=== PATIENT | female | born 1940 | race Hispanic/Latino ===

== ENCOUNTER 2019-02-16 18:38 | Inpatient (IN) | payer MEDICARE ==
[2019-02-16 18:50] VITALS: BMI 21.6
--- NOTE | 2019-02-16 20:39 | ED PDOC ---
Arrival/HPI - General Chief Complaint: GI Problem Time Seen by Provider: 02/16/19 19:03 Historian: Patient - History of Present Illness Narrative History of Present Illness (Text): 02/16/19 19:45 Eli Reddy is a 78 year old female, whose past medical history includes CAD s/p CABG, emphysema/COPD, diabetes, ovarian cancer, and hysterectomy, who presents to the ED complaining of generalized weakness. Patient also reports diarrhea and loss of appetite. Patient denies any fever, chills, chest pain, shortness of breath, nausea, vomiting, urinary symptoms, back pain, neck pain, headache, dizziness, or any other complaints. Symptom Onset: Gradual (r) Symptom Course: Unchanged Activities at Onset: Light Context: Home Past Medical History - Provider Review Nursing Documentation Reviewed: Yes - Infectious Disease Hx of Infectious Diseases: None - Cardiac Hx Hypertension: Yes Hx Pacemaker: No - Pulmonary Hx Chronic Obstructive Pulmonary Disease (COPD): Yes - Neurological Hx Paralysis: No - Endocrine/Metabolic Hx Diabetes Mellitus Type 2: Yes - Hematological/Oncological Hx Blood Transfusions: No Hx Blood Transfusion Reaction: No - Musculoskeletal/Rheumatological Hx Musculoskeletal Disorders: No - Gastrointestinal Hx Diverticulitis: Yes Hx Gastroesophageal Reflux: Yes Other/Comment: Hernia - Psychiatric Hx Emotional Abuse: No Hx Physical Abuse: No Hx Substance Use: No - Surgical History Hx Coronary Artery Bypass Graft: Yes Hx Hysterectomy: Yes - Anesthesia Hx Anesthesia: Yes Hx Anesthesia Reactions: No Hx Malignant Hyperthermia: No - Suicidal Assessment Feels Threatened In Home Enviroment: No Family/Social History - Physician Review Nursing Documentation Reviewed: Yes Family/Social History: Unknown Family HX Smoking Status: Unknown If Ever Smoked Hx Alcohol Use: No Hx Substance Use: No Hx Substance Use Treatment: No Allergies/Home Meds Allergies/Adverse Reactions: Allergies No Known Allergies Allergy (Verified 02/16/19 18:50) Home Medications: Home Meds Medication Instructions Recorded Confirmed ALPRAZolam [Xanax] 1 tab PO TID 02/16/19 02/16/19 Albuterol Sulfate [Proair Hfa] 2 puff IH PRN PRN 02/16/19 02/16/19 Arformoterol [Brovana] 1 vial IH DAILY 02/16/19 02/16/19 Aspirin [Aspirin Chewable] 1 tab PO DAILY 02/16/19 02/16/19 Budesonide [Pulmicort Respules] 1 vial IH DAILY 02/16/19 02/16/19 Esomeprazole Magnesium [Nexium] 1 cap PO DAILY 02/16/19 02/16/19 Ezetimibe/Simvastatin [Vytorin 1 tab PO DAILY 02/16/19 02/16/19 10-40 mg Tablet] Ferrous Sulfate [Feosol] 1 tab PO BID 02/16/19 02/16/19 Folic Acid 1 tab PO DAILY 02/16/19 02/16/19 Glimepiride [amaRYL] 1 tab PO BID 02/16/19 02/16/19 Losartan/Hydrochlorothiazide 1 tab PO DAILY 02/16/19 02/16/19 [Hyzaar 100-25 Tablet] Metoprolol Tartrate [Lopressor] 1 tab PO DAILY 02/16/19 02/16/19 Tiotropium [Spiriva] 1 cap IH DAILY 02/16/19 02/16/19 metFORMIN [glucOPHAGE] 1 tab PO BID 02/16/19 02/16/19 Review of Systems - Physician Review All systems were reviewed & negative as marked: Yes - Review of Systems Constitutional: Other (+generalized weakness). absent: Fevers Eyes: Normal ENT: Normal Respiratory: Normal. absent: SOB, Cough Cardiovascular: Normal. absent: Chest Pain Gastrointestinal: Diarrhea, Appetite Changes (+decreased appetite) Genitourinary Female: Normal. absent: Dysuria, Frequency, Hematuria, Urine Output Changes Musculoskeletal: Normal. absent: Back Pain, Neck Pain Skin: Normal. absent: Rash Neurological: Normal. absent: Headache, Dizziness Endocrine: Normal Hemo/Lymphatic: Normal Psychiatric: Normal Physical Exam Vital Signs Reviewed: Yes Vital Signs Temp Pulse Resp BP Pulse Ox 02/16/19 18:39 98.2 F 58 L 18 138/64 95 Temperature: Afebrile Blood Pressure: Normal Pulse: Regular Respiratory Rate: Normal Appearance: Positive for: Well-Appearing, Non-Toxic, Comfortable Pain Distress: None Mental Status: Positive for: Alert and Oriented X 3 - Systems Exam Head: Present: Atraumatic, Normocephalic Pupils: Present: PERRL Extroacular Muscles: Present: EOMI Conjunctiva: Present: Normal Mouth: Present: Moist Mucous Membranes Neck: Present: Normal Range of Motion Respiratory/Chest: Present: Clear to Auscultation, Good Air Exchange. No: Respiratory Distress, Accessory Muscle Use Cardiovascular: Present: Regular Rate and Rhythm, Normal S1, S2. No: Murmurs Abdomen: No: Tenderness, Distention, Peritoneal Signs Back: Present: Normal Inspection Upper Extremity: Present: Normal Inspection. No: Cyanosis, Edema Lower Extremity: Present: Normal Inspection. No: Edema Neurological: Present: GCS=15, CN II-XII Intact, Speech Normal Skin: Present: Warm, Dry, Normal Color. No: Rashes Psychiatric: Present: Alert, Oriented x 3, Normal Insight, Normal Concentration Medical Decision Making ED Course and Treatment: 02/16/19 19:45 Impression: 78 year old female complaining of generalized weakness, diarrhea, and loss of appetite. Plan: -- EKG -- Chest X-ray -- Labs, troponin, blood cultures -- Urinalysis, urine cultures -- IV fluids -- Reassess and disposition Progress Notes: Reviewed EKG, sinus bradycardia at [address] bpm. PAC. Non-specific ST/T wave changes. 02/16/19 21:05 Chest X-ray reviewed, shows no acute processes. 02/16/19 22:[address] Mehran Guillory, who is aware and agrees with plan request pt as admission not obs Accepts pt in to his service. Pt admitted to [facility] for dehydration and altered mental status. 02/16/19 23:57 - Lab Interpretations I have reviewed the lab results: Yes - RAD Interpretation Radiology Orders: 02/16/19 19:44 CHEST PORTABLE [RAD] Stat Learning Support Aide: ED Physician - EKG Interpretation Interpreted by ED Physician: Yes Type: 12 lead EKG - Medication Orders Current Medication Orders: Sodium Chloride (Sodium Chloride 0.9%) 1,000 mls @ 80 mls/hr IV .[id number] [facility] - Scribe Statement The provider has reviewed the documentation as recorded by the Scribnelli Dolan Provider Scribe Attestation: All medical record entries made by the Scribe were at my direction and personally dictated by me. I have reviewed the chart and agree that the record accurately reflects my personal performance of the history, physical exam, medical decision making, and the department course for this patient. I have also personally directed, reviewed, and agree with the discharge instructions and disposition. Disposition/Present on Arrival - Present on Arrival Any Indicators Present on Arrival: No History of DVT/PE: No History of Uncontrolled Diabetes: No Urinary Catheter: No History of Decub. Ulcer: No History Surgical Site Infection Following: None - Disposition Have Diagnosis and Disposition been Completed?: Yes Diagnosis: Altered mental status Disposition: HOSPITALIZED Disposition Time: 22:30 Condition: FAIR
[2019-02-16 20:54] LABS: BASO # 0.01 K/mm3 (0.0-2.0); BASO % 0.2 % (0.0-3.0); EOS % 0.2 % (1.5-5.0); HEMOGLOBIN 12.4 g/dL (12.0-16.0); LYMPH # 1.3 (1.2-3.4); LYMPH % 20.2 % (22.0-35.0); MEAN CELL VOLUME 88.9 fl (80.0-105.0); MEAN CORPUSCULAR HEMOGLOBIN 29.3 pg (25.0-35.0); MEAN PLATELET VOLUME 11.6 fl (7.0-11.0); MONO # 0.6 (0.1-0.6); MONO % 9.1 % (1.0-6.0); RBC 4.23 10^6/uL (3.5-6.1); RED CELL DISTRIBUTION WIDTH 14.7 % (11.5-14.5); WHITE BLOOD COUNT 6.5 10^3/uL (4.5-11.0)
[2019-02-16 21:46] LABS: ALB/GLOB RATIO 1.2 (1.1-1.8); ALT/SGPT 7 U/L (7-56); AST/SGOT 28 U/L (14-36); BLOOD UREA NITROGEN 21 mg/dL (7-21); GFR NON-AFRICAN AMERICAN > 60
[2019-02-16] MEDS ORDERED: Potassium Chloride 20 mEq ER Tab PO STA (21:51)
[2019-02-16 21:59] LABS: TROPONIN I < 0.01 ng/mL
[2019-02-16 22:02] LABS: INR 1.12; PROTHROMBIN TIME 12.4 SECONDS (9.4-12.5)
[2019-02-16] MEDS: Sodium Chloride 0.9% 1,000 ML IV SCH (22:07)
[2019-02-16] MEDS ORDERED: Sodium Chloride 0.9% 1,000 ML IV STA (23:32)
--- NOTE | 2019-02-17 02:49 | CP.PCM.PN ---
<Curly Morales - Last Filed: 02/17/19 02:36> Subjective - Date & Time of Evaluation Date of Evaluation: 02/17/19 Time of Evaluation: 12:48 - Subjective Subjective: Curly Morales DO Temitope Mcrae progress note S: 78 y/o female admitted to med/surg for AMS. Temitope Mcrae was called as patient was transferred to her bed and was trying to over the bed rails and slipped. No head trauma O: VS: BP 180/78 HR 70 RR 20 T 98.5 BG 117 Gen: patient is altered, non cooperative, refusing to sit in her bed HEENT: atraumatic, normocephalic Heart: S1,S2, no murmur/gallop Lung: CTA B/L Abd: soft, non-tender, no no masses Ext: no cyanosis, edema. right foot braces in place A: 78 y/o female admitted for AMS P: -Ativan 0.5 mg IM stat -hydralazine 10mg IVP once -resume home BP meds -patient reassessed and was calm. sitting in bed. Stable vitals Curly Morales DO Objective - Vital Signs/Intake and Output Vital Signs (last 24 hours): Temp Pulse Resp BP Pulse Ox 98.1 F 62 20 114/91 H 97 02/17/19 00:06 02/17/19 00:06 02/17/19 00:06 02/17/19 00:06 02/17/19 00:06 - Medications Medications: Current Medications Acetaminophen (Tylenol 325mg Tab) 650 mg PO Q4H PRN PRN Reason: Pain, Mild (1-3) Sodium Chloride (Sodium Chloride 0.9%) 1,000 mls @ 80 mls/hr IV .[id number] [facility] Last Admin: 02/16/19 22:07 Dose: 80 mls/hr Sodium Chloride (Sodium Chloride 0.9%) 1,000 mls @ 80 mls/hr IV .[id number] STA Stop: 02/17/19 12:01 Last Admin: 02/16/19 23:53 Dose: Not Given Insulin Human Regular (Humulin R Low) 0 units SC [facility]; Protocol - Labs Labs: 02/16/19 20:10 02/16/19 21:15 PT 12.4 SECONDS (9.4-12.5) 02/16/19 21:15 INR 1.12 02/16/19 21:15 APTT 23.0 Seconds (26.9-38.3) L 02/16/19 21:15 <Asha Knox - Last Filed: 02/17/19 13:03> Objective - Vital Signs/Intake and Output Vital Signs (last 24 hours): Temp Pulse Resp BP Pulse Ox 98.3 F 71 18 156/70 H 95 02/17/19 06:00 02/17/19 06:00 02/17/19 06:00 02/17/19 06:00 02/17/19 06:00 - Medications Medications: Current Medications Acetaminophen (Tylenol 325mg Tab) 650 mg PO Q4H PRN PRN Reason: Pain, Mild (1-3) Albuterol (Ventolin Hfa 90 Mcg/Actuation (8 G)) 2 puff IH PRN PRN PRN Reason: Shortness of Breath Alprazolam (Xanax) 1 mg PO TID [facility] Arformoterol Tartrate (Brovana) 15 mcg IH [id number] [facility] Aspirin (Aspirin Chewable) 81 mg PO DAILY [facility] Budesonide (Pulmicort Respules) 0.5 mg IH [id number] [facility] Folic Acid (Folic Acid) 1 mg PO DAILY [facility] Glimepiride (Amaryl) 4 mg PO BID [facility] Sodium Chloride (Sodium Chloride 0.9%) 1,000 mls @ 80 mls/hr IV .[id number] [facility] Last Admin: 02/17/19 08:39 Dose: Not Given Insulin Human Regular (Humulin R Low) 0 units SC [facility]; Protocol Last Admin: 02/17/19 12:41 Dose: Not Given Losartan Potassium (Cozaar) 100 mg PO DAILY [facility] Metformin HCl (Glucophage) 500 mg PO BID [facility] Metoprolol Tartrate (Lopressor) 50 mg PO DAILY [facility] Non-Formulary Medication (Ezetimibe/Simvastatin [Vytorin 10-40 Mg Tablet]) 1 tab PO DAILY [facility] Pantoprazole Sodium (Protonix Ec Tab) 40 mg PO ACB [facility] Tiotropium [place] (Spiriva) 1,000 mcg IH DAILY [facility] - Labs Labs: 02/17/19 09:50 02/17/19 09:50 PT 12.4 SECONDS (9.4-12.5) 02/16/19 21:15 INR 1.12 02/16/19 21:15 APTT 23.0 Seconds (26.9-38.3) L 02/16/19 21:15 Attending/Attestation - Attestation I have personally seen and examined this patient.: Yes I have fully participated in the care of the patient.: Yes I have reviewed all pertinent clinical information, including history, physical exam and plan: Yes Notes (Text): 02/17/19 13:01 Pt seen with the resident by the bedside. Case discussed in detail. Agree with documentation, assessment and plan of treatment.
[2019-02-17] MEDS: Sodium Chloride 0.9% 1,000 ML IV SCH (08:39)
[2019-02-17] MEDS: Insulin Reg-LOW-Coverage SC SCH ×4 (08:44→22:10)
--- NOTE | 2019-02-17 09:44 | RAD ---
Date of service: 02/16/2019 HISTORY: weakness COMPARISON: 01/09/2016 TECHNIQUE: 1 view obtained. FINDINGS: LUNGS: No active pulmonary disease. PLEURA: No significant pleural effusion identified, no pneumothorax apparent. CARDIOVASCULAR: Aortic calcification and tortuosity Normal cardiac size. No pulmonary vascular congestion. OSSEOUS STRUCTURES: No significant abnormalities. VISUALIZED UPPER ABDOMEN: Normal. OTHER FINDINGS: None. IMPRESSION: No active disease.
[2019-02-17 10:09] LABS: HEMOGLOBIN 12.7 g/dL (12.0-16.0); MEAN CELL VOLUME 89.7 fl (80.0-105.0); MEAN CORPUSCULAR HEMOGLOBIN 29.1 pg (25.0-35.0); MEAN CORPUSCULAR HGB CONC 32.5 g/dl (31.0-37.0); MEAN PLATELET VOLUME 11.2 fl (7.0-11.0); RBC 4.36 10^6/uL (3.5-6.1); RED CELL DISTRIBUTION WIDTH 14.7 % (11.5-14.5); WHITE BLOOD COUNT 5.7 10^3/uL (4.5-11.0)
[2019-02-17 10:18] LABS: BLOOD UREA NITROGEN 17 mg/dL (7-21); CALCIUM 8.7 mg/dL (8.4-10.5); GFR NON-AFRICAN AMERICAN > 60
[2019-02-17] MEDS ORDERED: Magnesium Sulfate 1 gm in D5W 1 GM/100 ML BAG IVPB ONE (11:00)
[2019-02-17] MEDS ORDERED: Albuterol HFA 90 mcg/actuation (8 g) IH PRN (11:09)
[2019-02-17] MEDS ORDERED: Budesonide 0.5 mg/2 ml Inhal Susp UD IH SCH (11:15)
[2019-02-17] MEDS ORDERED: Non Formulary Medication (Ezetimibe/Simvastatin [Vytorin 10-40 Mg Tablet] 1 TAB) PO SCH (11:15)
[2019-02-17] MEDS ORDERED: Arformoterol 15 mcg/2 ml Inh Sol IH SCH (11:15)
[2019-02-17] MEDS ORDERED: Non Formulary Medication (Losartan/Hydrochlorothiazide [Hyzaar 100-25 Tablet] 1 TAB) PO SCH (11:15)
[2019-02-17] MEDS ORDERED: Tiotropium 18 mcg Cap For Inhalation IH SCH (11:15)
[2019-02-17] MEDS ORDERED: ESOMEPRAZOLE MAGNESIUM PO SCH (11:15)
--- NOTE | 2019-02-17 11:34 | CT ---
Date of service: 02/17/2019 PROCEDURE: CT HEAD WITHOUT CONTRAST. HISTORY: ams COMPARISON: None available. TECHNIQUE: Axial computed tomography images were obtained through the head/brain without intravenous contrast. Radiation dose: Total exam DLP = 887.39 mGy-cm. This CT exam was performed using one or more of the following dose reduction techniques: Automated exposure control, adjustment of the mA and/or kV according to patient size, and/or use of iterative reconstruction technique. FINDINGS: HEMORRHAGE: No intracranial hemorrhage. BRAIN: Diffuse atrophy with prominence of the ventricles and sulci noted. No mass effect or edema. Intracranial atherosclerosis. Small subcentimeter lacunar-type infarcts, bilateral basal ganglia. Moderate scattered periventricular and subcortical white matter hypodensities, which are nonspecific, but often seen with chronic microvascular ischemic disease. Please note that MRI with diffusion imaging is more sensitive in the detection of acute ischemic event. VENTRICLES: No hydrocephalus. CALVARIUM: Unremarkable. PARANASAL SINUSES: Unremarkable as visualized. No significant inflammatory changes. MASTOID AIR CELLS: Unremarkable as visualized. No inflammatory changes. OTHER FINDINGS: Calcified nodule/sebaceous cyst at the left scalp vertex. IMPRESSION: Generalized atrophy. Moderate scattered nonspecific white matter changes. Small subcentimeter lacunar-type infarcts, bilateral basal ganglia.
[2019-02-17] MEDS ORDERED: Pantoprazole 40 mg EC Tab PO ONE (11:45)
--- NOTE | 2019-02-17 12:13 | CP.PCM.APN ---
Subjective - Date & Time of Evaluation Date of Evaluation: 02/17/19 Time of Evaluation: 09:30 - Subjective Subjective: Pt seen and examined at bedside. In no acute distress. She is awake, alert and oriented to time and self. Pt think she is in [place]. Objective - Vital Signs/Intake and Output Vital Signs (last 24 hours): Temp Pulse Resp BP Pulse Ox 98.3 F 71 18 156/70 H 95 02/17/19 06:00 02/17/19 06:00 02/17/19 06:00 02/17/19 06:00 02/17/19 06:00 - Medications Medications: Current Medications Acetaminophen (Tylenol 325mg Tab) 650 mg PO Q4H PRN PRN Reason: Pain, Mild (1-3) Albuterol (Ventolin Hfa 90 Mcg/Actuation (8 G)) 2 puff IH PRN PRN PRN Reason: Shortness of Breath Alprazolam (Xanax) 1 mg PO TID [facility] Arformoterol Tartrate (Brovana) 15 mcg IH [id number] [facility] Aspirin (Aspirin Chewable) 81 mg PO DAILY [facility] Budesonide (Pulmicort Respules) 0.5 mg IH [id number] [facility] Folic Acid (Folic Acid) 1 mg PO DAILY [facility] Glimepiride (Amaryl) 4 mg PO BID [facility] Sodium Chloride (Sodium Chloride 0.9%) 1,000 mls @ 80 mls/hr IV .[id number] [facility] Last Admin: 02/17/19 08:39 Dose: Not Given Insulin Human Regular (Humulin R Low) 0 units SC [facility]; Protocol Last Admin: 02/17/19 08:44 Dose: Not Given Losartan Potassium (Cozaar) 100 mg PO DAILY [facility] Metformin HCl (Glucophage) 500 mg PO BID [facility] Metoprolol Tartrate (Lopressor) 50 mg PO DAILY [facility] Non-Formulary Medication (Ezetimibe/Simvastatin [Vytorin 10-40 Mg Tablet]) 1 tab PO DAILY [facility] Pantoprazole Sodium (Protonix Ec Tab) 40 mg PO ACB [facility] Tiotropium [place] (Spiriva) 1,000 mcg IH DAILY [facility] - Labs Labs: 02/17/19 09:50 02/17/19 09:50 PT 12.4 SECONDS (9.4-12.5) 02/16/19 21:15 INR 1.12 02/16/19 21:15 APTT 23.0 Seconds (26.9-38.3) L 02/16/19 21:15 - Constitutional Appears: No Acute Distress - Respiratory Exam Respiratory Exam: Clear to Ausculation Bilateral, NORMAL BREATHING PATTERN - Cardiovascular Exam Cardiovascular Exam: REGULAR RHYTHM, +S1, +S2 - GI/Abdominal Exam GI & Abdominal Exam: Soft, Normal Bowel Sounds - Neurological Exam Neurological Exam: Alert, Awake Assessment and Plan - Assessment and Plan (Free Text) Assessment: pt is a 78 y.o. female with pmhx of CAD s/p CABG, emphysema/COPD, diabetes, ovarian cancer, and hysterectomy, who presented to the ED for gen weakness, diarrhea and loss of appetite. Pt had one episode of soft BM today. No diarrhea noted. Her magnesium noted to be low today. ITS Impressions Chest X-Ray 02/16/19 19:44 IMPRESSION: No active disease. Head CT 02/17/19 10:13 IMPRESSION: Generalized atrophy. Moderate scattered nonspecific white matter changes. Small subcentimeter lacunar-type infarcts, bilateral basal ganglia. Plan: Magnesium replaced Ucx/Bcx pending Cardio, GI, Pulm on consult per PMD Physical therapy pending Meds per MAR Will continue to follow
--- NOTE | 2019-02-17 13:22 | CARD ---
APPROVED REPORT Date of service: 02/16/2019 EKG Measurement Heart [id number] <Conclusion> Sinus bradycardia with premature atrial complexes Poor R Progression in V Leads. ST & T wave abnormality, consider lateral ischemia Prolonged QT Abnormal ECG
[2019-02-17] MEDS ORDERED: Albuterol 0.5% Inhal Sol (2.5 mg/0.5 ml) UD IH PRN (13:52)
--- NOTE | 2019-02-17 18:57 | HP ---
DATE OF EXAM: 02/17/2019 HISTORY OF PRESENT ILLNESS: The patient is a 78-year-old female who was brought to the emergency room by her family when she was found to be disoriented and extremely unkept in her apartment. I received a phone call yesterday from the patient's daughter saying that the patient had been suffering from diarrhea. The patient admits to diarrhea every 15 minutes. Apparently, there was feces in rags, towels, on the carpeting and in the house. So I suggested that the squad be called and the patient be taken to the emergency room. PAST MEDICAL HISTORY: The patient is known to have a past medical history positive for ovarian cancer in 2009. She has underwent quadruple bypass surgery in 2006. She fractured her wrist in the distal past. She had a history of diverticulitis in 1997. There was a 1.3 cm fibroid nodule biopsy in 2011, which was negative for carcinoma. She recently suffered a malleolar fracture of the right foot and was hospitalized in [facility] for that and was discharged to home a week or two ago. She also has a history of osteoarthritis of the knees, noninsulin-dependent diabetes mellitus since 2008, and cardiac status, which is followed by Dr. Emery, the rn cardiology. She has hypertension, congestive heart failure, COPD since 2006, which is followed by Dr. Su, the dining car hop and gastroesophageal reflux disease. ALLERGIES: SHE HAS NO KNOW MEDICAL ALLERGIES. MEDICATIONS: At the time of admission include Xanax 1 tablet three times a day as needed, ProAir 2 puffs as needed, Brovana one vial inhalation therapy daily, a 81 mg aspirin daily, Pulmicort Respules, Nexium one capsule daily, Vytorin 10/40 mg once a day, ferrous sulfate one tablet twice a day, folic acid 1 tablet daily, Amaryl one tablet twice a day, Hyzaar 100/25 mg once a day, metoprolol tartarate 50 mg once a day, Spiriva one capsule inhaled daily, and metformin 500 mg twice a day. SOCIAL HISTORY: She discontinued cigarettes approximately 8 to 11 years ago. She is a nonalcoholic drinker. She is a x21 years. She lives downstairs from her daughter. She drinks 2-1/2 cups of coffee a day. PHYSICAL EXAMINATION GENERAL: The patient is awake, alert and oriented. She is quite confused. She is upset about treatment she received in the emergency room prior to coming to the medical floor. HEAD, EYES, EARS, NOSE AND THROAT: Unremarkable. NECK: Supple with no lymphadenopathy and no goiter. LUNGS: Clear to auscultation and percussion. HEART: Regular. No murmurs are appreciated. A sternotomy scar is noted. ABDOMEN: Soft, nontender. The patient does feel some lower suprapubic tenderness on palpation; however, states she needs to urinate. The patient apparently soiled her bed and is awaiting a change from the nurses. A sample of stool will be sent for C. difficile testing. EXTREMITIES: Free of cyanosis, clubbing, or edema. NEUROLOGIC: The patient is awake, alert and oriented with no focal neurological signs. LABORATORY STUDIES: Showed the white blood cell count to be normal at 6.5, hemoglobin and hematocrit are 12.4 and 37.6 respectively, platelet count is 230. Serum chemistry shows potassium to be low at 3.2, chloride is 96, sodium is normal at 138, blood urea nitrogen and creatinine are 21 and 0.7 respectively, non-fasting glucose is 157. Liver enzymes are normal. Alkaline phosphatase is normal at 102. Troponins are negative at 0.02. Chest x-ray shows no acute disease. EKG shows sinus bradycardia with PAC's. There is a questionable old anterior wall myocardial infarction. There are nonspecific ST-T wave changes and prolonged QT interval noted. ASSESSMENT AND PLAN: So the patient is admitted with dehydration, diarrhea, abdominal pain, and mental status changes. The patient is to be reevaluated in the morning. Nain Guillory MD
--- NOTE | 2019-02-17 19:24 | CON ---
DATE OF CONSULTATION: 02/17/2019 PULMONARY CONSULTATION REASON FOR CONSULTATION: Chronic obstructive pulmonary disease. REFERRING PHYSICIAN: Dr. Guillory. HISTORY OF PRESENT ILLNESS: The patient is a 78-year-old female, with past medical history significant for chronic obstructive pulmonary disease, coronary artery disease, status post open heart surgery, diabetes mellitus, who presents with progressive weakness and diarrhea for the past 4 days. The patient denies nausea and vomiting. In the emergency room, the patient was noted to be dehydrated. She was thus admitted for additional evaluation. The patient denies shortness of breath at rest or dyspnea on exertion. The patient also denies cough or sputum production. There is no history of chest pain, coughing up of blood, or chest pain - made worse with deep respirations. There is no history of temperatures, chills or infectious exposure. There is no history of night sweats, weight loss or appetite change prior to the above events. No history of calf pains. No history of syncope or diaphoresis. No history of recent travel or trauma. REVIEW OF SYSTEMS: No acute urinary symptoms. No new musculoskeletal complaints. Rest of the review of systems is negative. ALLERGIES: NO KNOWN ALLERGIES. SOCIAL HISTORY: Positive for tobacco, negative for alcohol. FAMILY HISTORY: No inheritable diseases. HOME MEDICATIONS: Include folate, Pulmicort, Brovana, ProAir, Spiriva, Xanax, Glucophage, Amaryl, Feosol, Nexium, Lopressor, losartan, and aspirin. PHYSICAL EXAMINATION: GENERAL: The patient appears comfortable at rest. She is not short of breath. She is not using accessory muscles for breathing. VITAL SIGNS: Temperature is 98.3, pulse is 71, respirations 18, blood pressure 156/70. Oxygen saturation on room air - 95%. HEENT: Normocephalic, atraumatic. NECK: No JVD. CARDIOVASCULAR: Positive S1, S2. No S3, gallop. LUNGS: Clear bilaterally. EXTREMITIES: No clubbing, cyanosis or edema. Calves are nontender to palpation. GASTROINTESTINAL: Abdomen is soft, nontender and nondistended. Bowel sounds are positive. SKIN: No acute rash. NEUROLOGIC: Exam limited at the present time. PERTINENT LABORATORY DATA: Chest x-ray was done and reviewed. There is no active disease noted. CBC: White count 5.7K, hemoglobin 12.7, hematocrit is 39.1, platelets of 227,000. Complete metabolic profile: Glucose 152, magnesium 1.4. Rest of the metabolic profile is within normal limits. IMPRESSION: 1. Rule out gastroenteritis. 2. Dehydration. 3. Chronic obstructive pulmonary disease. 4. Coronary artery disease. PLAN: The patient presents to [facility] with a 4-day history of increasing weakness and diarrhea. As above, she denies nausea and vomiting. She also denies infectious contacts. In the emergency room, she was noted to be dehydrated. She was thus admitted for additional evaluation. I did review the chest x-ray as above. There is no active disease noted. On physical exam, the patient is not in bronchospasm. In addition, there is no significant alveolar arterial gradient. I will continue with the Brovana and Spiriva. However, I will increase the Pulmicort to twice daily. At this point in time, the patient offers no acute pulmonary symptoms. The patient does state to feeling a little better this morning, and is clinically improved - compared to the initial presentation. Cardiology and Gastrointestinal consultations have been ordered. Additional pulmonary intervention will be based on the clinical status of the patient. I will discuss the above with the attending physician. Thank you very much for this pulmonary consultation. Antonio Green MD [email or web address]
[2019-02-17] MEDS: Budesonide 0.5 mg/2 ml Inhal Susp UD IH SCH (20:17)
[2019-02-17] MEDS: Arformoterol 15 mcg/2 ml Inh Sol IH SCH (20:17)
[2019-02-18 07:09] LABS: HEMOGLOBIN 12.5 g/dL (12.0-16.0); MEAN CORPUSCULAR HEMOGLOBIN 29.2 pg (25.0-35.0); MEAN CORPUSCULAR HGB CONC 32.5 g/dl (31.0-37.0); MEAN PLATELET VOLUME 11.5 fl (7.0-11.0); RBC 4.28 10^6/uL (3.5-6.1); RED CELL DISTRIBUTION WIDTH 14.9 % (11.5-14.5); WHITE BLOOD COUNT 5.7 10^3/uL (4.5-11.0)
[2019-02-18 07:22] LABS: LDL CHOLESTEROL 157 mg/dL (0-129)
[2019-02-18 07:33] LABS: ALB/GLOB RATIO 1.1 (1.1-1.8); ALBUMIN 3.3 g/dL (3.0-4.8); ALT/SGPT 7 U/L (7-56); AMYLASE 68 U/L (35-125); AST/SGOT 18 U/L (14-36); BLOOD UREA NITROGEN 16 mg/dL (7-21); CALCIUM 8.9 mg/dL (8.4-10.5); GFR NON-AFRICAN AMERICAN > 60; HDL CHOLESTEROL 38 mg/dL (29-60); LIPASE 167 U/L (23-300)
[2019-02-18] MEDS: Budesonide 0.5 mg/2 ml Inhal Susp UD IH SCH ×2 (07:58→20:24)
[2019-02-18] MEDS: Arformoterol 15 mcg/2 ml Inh Sol IH SCH ×2 (07:58→20:25)
--- NOTE | 2019-02-18 09:00 | PN ---
DATE: 02/18/2019 SUBJECTIVE: The patient appears quite comfortable this morning. She is not short of breath at rest. PHYSICAL EXAMINATION: VITAL SIGNS: Temperature is 97.9, pulse 90, respirations 18, blood pressure 144/76. Oxygen saturation on room air 93% --97%. HEENT: Normocephalic, atraumatic. No JVD. CARDIOVASCULAR: Positive S1, S2. No S3 gallop. LUNGS: Clear bilaterally. EXTREMITIES: No clubbing, cyanosis or edema. Calves are nontender to palpation. GASTROINTESTINAL: Abdomen is soft, nontender and nondistended. Bowel sounds are positive. SKIN: No acute rash. NEUROLOGIC: Exam limited at the present time. IMPRESSION: 1. Rule out gastroenteritis. 2. Dehydration. 3. Chronic obstructive pulmonary disease. 4. Coronary artery disease. PLAN: The patient appears quite comfortable this morning. She is not short of breath at rest. She does state to feeling much better overall. The diarrhea is subsiding. On physical exam, the patient's lungs remain clear. In addition, there is no significant alveolar arterial gradient. I will continue the current nebulizer treatments and inhaled steroids for now. Consultations for Cardiology and Gastroenterology are ordered. Clinical status of the patient appears much improved - compared to the initial presentation. I will discuss the above with Dr. Guillory. Antonoi Green MD MTDAlex
--- NOTE | 2019-02-18 09:03 | CON ---
DATE OF CONSULTATION: 02/17/2019 TYPE OF DICTATION: Cardiology consult. REASON FOR CONSULTATION: Followup cardiac evaluation, history of coronary artery disease, history of CABG, admitted with altered mental status, diarrhea and vomiting. BRIEF CLINICAL HISTORY: This is a 78-year-old female with past medical history significant for coronary artery disease status post CABG, quadruple bypass 2006, admitted with altered mental status after having diarrhea and vomiting. The patient was vomiting and all vomitus around the bed noted today. PAST HISTORY: Significant for coronary artery disease, quadruple bypass 2006, history of ovarian CA in 2009, history of diverticular colonic disease, history of fibroid in 2011 and was found to be negative for cancer, history of malleolar fracture and hospitalized and then was sent to the rehab facility. The patient denies any chest pain. Denies any shortness of breath. Denies any palpitation. PAST SURGICAL HISTORY: Significant for ovarian cancer, status post removal; history of quadruple bypass in 2006; history of fibroid uterus and nodule, but negative for carcinoma; history of malleolar fracture of right foot. SOCIAL HISTORY: Stopped smoking 8-10 years ago. No history of alcohol abuse. No history of any substance abuse. CURRENT MEDICATIONS: The patient is taking Xanax three times a day 2 puffs, Brovana inhaler, aspirin, folic acid, Amaryl, Hyzaar, combination of Cozaar 100 mg and 25 of diuretic, metoprolol tartrate 50 mg twice a day, Spiriva. ALLERGIES: NO KNOWN DRUG ALLERGIES. REVIEW OF SYSTEMS: As per HPI. PHYSICAL EXAMINATION: VITAL SIGNS: Height of the patient is 4 feet 9 inches. Weight of the patient 100 pounds. Body mass index 21 kg/m2. Temperature afebrile, heart rate 86, blood pressure 156/90. HEENT: PERRLA. Extraocular muscles are intact. NECK: Supple. No carotid bruit or thyromegaly. CHEST: Clear to auscultation. HEART: S1 and S2, regular. ABDOMEN: Soft. EXTREMITIES: Clubbing and cyanosis negative. EKG shows sinus isela with premature atrial complexes, poor RR progression, ST-T changes consistent with lateral ischemia. BLOOD WORKUP: WBC 5.7, hemoglobin and hematocrit 12.8 and 39.1, platelet count 227,000. Chemistry shows sodium 130, potassium 3.7, chloride 101, carbon dioxide 28, anion gap of 30, BUN 17, and creatinine 0.7. Previous cardiac workup not available in the computer. We will check with Dr. Emery's office if the patient has any recent cardiac workup or not. IMPRESSION AND PLAN: A 78-year-old female with a past medical history significant for quadruple bypass in 2006, history of carcinoma of ovarian, history of fibroid uterus and negative for cancer, history of malleolar fracture in the past, admitted with altered mental status, vomiting, diarrhea. The patient is still vomiting and vomitus around the bed noted. So far, no evidence of acute PR, though EKG with some changes, but no evidence of acute PR. We will get echo to assess LV function, lipid profile, TSH, hemoglobin A1c. Further recommendations will depend upon the hospital course. We will look if any recent cardiac workup was done. Thank you Dr. Guillory for providing us the opportunity in taking care of the patient. We will follow with you. Melanie An MD
[2019-02-18] MEDS: Insulin Reg-LOW-Coverage SC SCH ×4 (09:18→21:21)
[2019-02-18] MEDS: Tiotropium 18 mcg Cap For Inhalation IH SCH (09:19)
[2019-02-18] MEDS: Pantoprazole 40 mg EC Tab PO SCH (09:20)
[2019-02-18] MEDS ORDERED: Arformoterol 15 mcg/2 ml Inh Sol IH SCH (10:00)
[2019-02-18] MEDS ORDERED: Budesonide 0.5 mg/2 ml Inhal Susp UD IH SCH (10:00)
[2019-02-18] MEDS: Potassium Chloride 10 mEq ER Tab PO SCH ×2 (11:12→17:51)
--- NOTE | 2019-02-18 11:21 | CP.PCM.PN ---
Subjective - Date & Time of Evaluation Date of Evaluation: 02/18/19 Time of Evaluation: 05:00 - Subjective Subjective: Patient was seen because I was asked to cosign the order for hydralazine 10 mg IV x1. She has no complaints. Denies headache, heaviness in head, lightheadedness, dizziness, chest pain, shortness of breath, weakness, paresthesia. Medical records reviewed. This 78-year-old woman was admitted through the emergency room for diarrhea, dehydration, abdominal pain, mental status changes. She has past medical history of ovarian cancer, status post quadruple bypass surgery, fractured right wrist, diverticulitis, fibroid nodule, right foot malleolar fracture, hypertension, congestive heart failure, COPD, GERD. Objective - Vital Signs/Intake and Output Vital Signs (last 24 hours): Temp Pulse Resp BP Pulse Ox 97.9 F 94 H 18 122/68 93 L 02/18/19 06:00 02/18/19 09:19 02/18/19 06:00 02/18/19 09:19 02/18/19 06:00 Intake and Output: 02/18/19 02/18/19 06:59 18:59 Intake Total 520 Balance 520 - Medications Medications: Current Medications Acetaminophen (Tylenol 325mg Tab) 650 mg PO Q4H PRN PRN Reason: Pain, Mild (1-3) Albuterol Sulfate (Albuterol 0.5% Inhal Chiquita (2.5 Mg/0.5 Ml) Ud) 2.5 mg IH [id number] PRN PRN Reason: Shortness of Breath Alprazolam (Xanax) 1 mg PO TID [facility] Last Admin: 02/18/19 09:20 Dose: 1 mg Arformoterol Tartrate (Brovana) 15 mcg IH [id number] [facility] Last Admin: 02/18/19 07:58 Dose: 15 mcg Aspirin (Aspirin Chewable) 81 mg PO DAILY [facility] Last Admin: 02/18/19 09:20 Dose: 81 mg Budesonide (Pulmicort Respules) 0.5 mg IH [id number] [facility] Last Admin: 02/18/19 07:58 Dose: 0.5 mg Folic Acid (Folic Acid) 1 mg PO DAILY [facility] Last Admin: 02/18/19 09:20 Dose: 1 mg Glimepiride (Amaryl) 4 mg PO BID [facility] Last Admin: 02/18/19 09:20 Dose: 4 mg Ibuprofen (Motrin Tab) 600 mg PO Q8 PRN PRN Reason: Pain, severe (8-10) Insulin Human Regular (Humulin R Low) 0 units SC ACHS [facility]; Protocol Last Admin: 02/18/19 09:18 Dose: 1 unit Losartan Potassium (Cozaar) 100 mg PO DAILY [facility] Last Admin: 02/18/19 09:20 Dose: 100 mg Metformin HCl (Glucophage) 500 mg PO BID [facility] Last Admin: 02/18/19 09:20 Dose: 500 mg Metoprolol Tartrate (Lopressor) 50 mg PO DAILY [facility] Last Admin: 02/18/19 09:19 Dose: 50 mg Non-Formulary Medication (Ezetimibe/Simvastatin [Vytorin 10-40 Mg Tablet]) 1 tab PO DAILY [facility] Ondansetron HCl (Zofran Inj) 4 mg IVP Q6H PRN PRN Reason: Nausea/Vomiting Last Admin: 02/17/19 19:38 Dose: 4 mg Pantoprazole Sodium (Protonix Ec Tab) 40 mg PO ACB [facility] Last Admin: 02/18/19 09:20 Dose: 40 mg Potassium Chloride (Klor-Con 10) 10 meq PO BID [facility] Tiotropium [place] (Spiriva) 18 mcg IH DAILY [facility] Last Admin: 02/18/19 09:19 Dose: 18 mcg - Labs Labs: 02/18/19 06:40 02/18/19 06:40 PT 12.4 SECONDS (9.4-12.5) 02/16/19 21:15 INR 1.12 02/16/19 21:15 APTT 23.0 Seconds (26.9-38.3) L 02/16/19 21:15 - Constitutional Appears: Well, No Acute Distress - Head Exam Head Exam: ATRAUMATIC, NORMAL INSPECTION, NORMOCEPHALIC - Eye Exam Eye Exam: Normal appearance - ENT Exam ENT Exam: Normal External Ear Exam - Neck Exam Neck Exam: Normal Inspection - Respiratory Exam Respiratory Exam: NORMAL BREATHING PATTERN - Cardiovascular Exam Cardiovascular Exam: absent: JVD - GI/Abdominal Exam GI & Abdominal Exam: absent: Distended - Rectal Exam Rectal Exam: Deferred - Exam Additional comments: Deferred. - Extremities Exam Extremities Exam: Normal Inspection - Back Exam Back Exam: NORMAL INSPECTION - Neurological Exam Neurological Exam: Alert, Awake - Psychiatric Exam Psychiatric exam: Normal Affect, Normal Mood - Skin Skin Exam: Normal Color Assessment and Plan - Assessment and Plan (Free Text) Assessment: Elevated blood pressure reading. COPD. GERD. Congestive heart failure. History of ovarian cancer. Plan: Hydralazine 10 mg IV x1. Continue present management.
--- NOTE | 2019-02-18 12:39 | CP.PCM.PN ---
Subjective - Date & Time of Evaluation Date of Evaluation: 02/18/19 Time of Evaluation: 07:00 - Subjective Subjective: Awake, no distress Reason for consultation and follow up:Cardiac follow up, history coronary artery disease, post CABG, admitted for altered mental status Seen and examined by me and Dr. An Objective - Vital Signs/Intake and Output Vital Signs (last 24 hours): Temp Pulse Resp BP Pulse Ox 97.9 F 94 H 18 122/68 93 L 02/18/19 06:00 02/18/19 09:19 02/18/19 06:00 02/18/19 09:19 02/18/19 06:00 Intake and Output: 02/18/19 02/18/19 06:59 18:59 Intake Total 520 Balance 520 - Medications Medications: Current Medications Acetaminophen (Tylenol 325mg Tab) 650 mg PO Q4H PRN PRN Reason: Pain, Mild (1-3) Albuterol Sulfate (Albuterol 0.5% Inhal Chiquita (2.5 Mg/0.5 Ml) Ud) 2.5 mg IH [id number] PRN PRN Reason: Shortness of Breath Alprazolam (Xanax) 1 mg PO TID [facility] Last Admin: 02/18/19 09:20 Dose: 1 mg Arformoterol Tartrate (Brovana) 15 mcg IH [id number] [facility] Last Admin: 02/18/19 07:58 Dose: 15 mcg Aspirin (Aspirin Chewable) 81 mg PO DAILY [facility] Last Admin: 02/18/19 09:20 Dose: 81 mg Budesonide (Pulmicort Respules) 0.5 mg IH [id number] [facility] Last Admin: 02/18/19 07:58 Dose: 0.5 mg Folic Acid (Folic Acid) 1 mg PO DAILY [facility] Last Admin: 02/18/19 09:20 Dose: 1 mg Glimepiride (Amaryl) 4 mg PO BID [facility] Last Admin: 02/18/19 09:20 Dose: 4 mg Ibuprofen (Motrin Tab) 600 mg PO Q8 PRN PRN Reason: Pain, severe (8-10) Last Admin: 02/18/19 12:15 Dose: 600 mg Insulin Human Regular (Humulin R Low) 0 units SC [facility]; Protocol Last Admin: 02/18/19 12:16 Dose: 3 unit Losartan Potassium (Cozaar) 100 mg PO DAILY [facility] Last Admin: 02/18/19 09:20 Dose: 100 mg Metformin HCl (Glucophage) 500 mg PO BID [facility] Last Admin: 02/18/19 09:20 Dose: 500 mg Metoprolol Tartrate (Lopressor) 50 mg PO DAILY [facility] Last Admin: 02/18/19 09:19 Dose: 50 mg Non-Formulary Medication (Ezetimibe/Simvastatin [Vytorin 10-40 Mg Tablet]) 1 tab PO DAILY [facility] Ondansetron HCl (Zofran Inj) 4 mg IVP Q6H PRN PRN Reason: Nausea/Vomiting Last Admin: 02/17/19 19:38 Dose: 4 mg Pantoprazole Sodium (Protonix Ec Tab) 40 mg PO ACB [facility] Last Admin: 02/18/19 09:20 Dose: 40 mg Potassium Chloride (Klor-Con 10) 10 meq PO BID [facility] Last Admin: 02/18/19 11:12 Dose: 10 meq Tiotropium [place] (Spiriva) 18 mcg IH DAILY [facility] Last Admin: 02/18/19 09:19 Dose: 18 mcg - Labs Labs: 02/18/19 06:40 02/18/19 06:40 PT 12.4 SECONDS (9.4-12.5) 02/16/19 21:15 INR 1.12 02/16/19 21:15 APTT 23.0 Seconds (26.9-38.3) L 02/16/19 21:15 - Constitutional Appears: Non-toxic, No Acute Distress - Head Exam Head Exam: NORMAL INSPECTION, NORMOCEPHALIC - Eye Exam Eye Exam: Normal appearance Pupil Exam: NORMAL ACCOMODATION - ENT Exam ENT Exam: Mucous Membranes Moist, Normal Exam - Respiratory Exam Respiratory Exam: Decreased Breath Sounds, Clear to Ausculation Bilateral, NORMAL BREATHING PATTERN - Cardiovascular Exam Cardiovascular Exam: +S1, +S2 - GI/Abdominal Exam GI & Abdominal Exam: Soft, Normal Bowel Sounds - Extremities Exam Extremities Exam: Full ROM, Normal Capillary Refill - Neurological Exam Neurological Exam: Alert, Awake Additional comments: confuse - Skin Skin Exam: Normal Color, Warm Assessment and Plan - Assessment and Plan (Free Text) Assessment: A 78 year old female who came in to the ER due to altered mental status. Histo ry of coronary artery disease, post CABG in 2006, ovarian cancer in 2009, with hysterectomy, fibroid in 2011, hypertension, COPD, GERD,history of malleolar fracture and was hospitalized then sent to rehab. EKG shows sinus bradycardia with PAC's, ST-T changes consistent with ischemia. Denies chest pain. Rule out acute myocardial infarction. No previous cardiac work up done at [facility]. Will check office chart. Will order echo to evaluate LV function. Plan: Denies chest pain, no distress Episode of high blood pressure last night PRN Hydralazine given Heart rate stable Control Blood pressure For echo to evaluate LV function On ASA 81 mg daily, Cozaar 100 mg daily,Lopressor 50 mg daily Continue current management Will follow up Plan and treatment discussed with Dr. An
[2019-02-18] MEDS ORDERED: Benzocaine/Menthol (Cepacol) Lozenge MT PRN (12:52)
[2019-02-18] MEDS: Lidocaine 5% Patch TD SCH (14:12)
[2019-02-18] MEDS: Non Formulary Medication (Ezetimibe/Simvastatin [Vytorin 10-40 Mg Tablet] 1 TAB) PO SCH (14:53)
[2019-02-18 15:48] LABS: PH,URINE 5.5 (4.7-8.0); URINE BILIRUBIN NEGATIVE (NEGATIVE); URINE BLOOD NEGATIVE (NEGATIVE); URINE GLUCOSE (UA) NEGATIVE (NEGATIVE); URINE LEUKOCYTE ESTERASE SMALL Leu/uL (NEGATIVE); URINE PROTEIN 30 mg/dL (<30 mg/dL); URINE UROBILINOGEN 0.2 E.U./dL (<1 E.U./dL)
[2019-02-18 15:59] LABS: URINE APPEARANCE CLEAR (CLEAR); URINE COLOR YELLOW (YELLOW)
[2019-02-18 16:30] LABS: URINE BACTERIA MANY /hpf; URINE RBC 0 - 2 /hpf (0-2)
[2019-02-18 16:31] LABS: URINE AMORPHOUS SEDIMENT FEW /hpf
--- NOTE | 2019-02-18 17:39 | PN ---
DATE: 02/18/2019 SUBJECTIVE: The patient was seen this morning in room 564, bed 1, resting comfortably in bed, markedly improved from her reported status upon admission some 24 to 30 hours ago. Her blood pressure is now a bit elevated. Her potassium is a bit low. She is adequately hydrated after several days of watery diarrhea. Mental status has cleared to what I believe is close to her baseline. She realizes how sick she was and feels sorry for not calling for help sooner. IMPRESSION: Dehydration with altered mental status most likely from a viral gastroenteritis with fluctuations in her blood pressure and hypokalemia. PLAN: We will get her out of bed today. Physical therapy. Increase diet for possible discharge as early as tomorrow. Mehran Guillory MD
[2019-02-18] MEDS: Sodium Chloride 0.9% 1,000 ML IV SCH (17:52)
--- NOTE | 2019-02-18 19:42 | CARD ---
APPROVED REPORT Date of service: 02/18/2019 EXAM: Two-dimensional and M-mode echocardiogram with Doppler and color Doppler. INDICATION Cardiac Disease: CAD 2D DIMENSIONS Left Atrium (2D)3.1 (1.6-4.0cm)IVSd1.4 (0.7-1.1cm) LVDd3.4 (3.9-5.9cm)PWd1.3 (0.7-1.1cm) LVDs2.3 (2.5-4.0cm)FS (%) 32.9 % LVEF (%)62.7 (>50%) M-Mode DIMENSIONS Aortic Root2.60 (2.2-3.7cm)Aortic Cusp Exc.1.60 (1.5-2.0cm) Aortic Valve AoV Peak Vcllvtlp519.0cm/Blanca Peak GR.9mmHg Mitral Valve MV E Fkxbserg78.0cm/sMV A Ossfcepc15.5cm/sE/A ratio0.6 TDI E/Lateral E'0.0E/Medial E'0.0 Tricuspid Valve TR Peak [id number]/sRAP [id number] Peak Gr.7mmHg [id number] LEFT VENTRICLE The left ventricle is normal size. There is mild concentric left ventricular hypertrophy. The left ventricular function is normal.EF-60-65% There is normal LV segmental wall motion. Transmitral Doppler flow pattern is Grade III-reversible restrictive diastolic dysfunction. No left ventricle thrombus noted on this study. There is no ventricular septal defect visualized. There is no left ventricular aneurysm. There is no mass noted in the left ventricle. RIGHT VENTRICLE The right ventricle is normal size. There is normal right ventricular wall thickness. The right ventricular systolic function is normal. ATRIA The left atrium size is normal. The right atrium size is normal. The interatrial septum is intact with no evidence for an atrial septal defect. AORTIC VALVE The aortic valve is thickened but opens well. There is trace aortic regurgitation. There is no aortic valvular stenosis. There is no aortic valvular vegetation. MITRAL VALVE The mitral valve is mildly thickened. Mitral regurgitation is trace. There is no mitral valve stenosis. There is no evidence of mitral valve prolapse. TRICUSPID VALVE The tricuspid valve leaflets are thickened , but open well. There is trace tricuspid regurgitation.RVSP-17 mmof Hg. There is no tricuspid valve stenosis. There is no tricuspid valve prolapse or vegetation. PULMONIC VALVE The pulmonic valve is not well visualized. GREAT VESSELS The aortic root is normal in size. The ascending aorta is normal in size. The pulmonary artery is normal. The IVC is normal in size and collapses >50% with inspiration. PERICARDIAL EFFUSION There is no pleural effusion. There is no pericardial effusion. <Conclusion> Normal chamber Size. EF-60-65% Trace MR/TR/AR RVSP-17 mmof hg. No Vegetation or thrombus noted.
--- NOTE | 2019-02-19 08:00 | PN ---
DATE: 02/19/2019 SUBJECTIVE: The patient appears comfortable this morning. She is not short of breath at rest. PHYSICAL EXAMINATION: VITAL SIGNS: (Last noted in the computer): Temperature is 98.1, pulse 66, respirations 16, blood pressure 113/65. Oxygen saturation on room air - 95%. HEENT: Normocephalic, atraumatic. No JVD. CARDIOVASCULAR: Positive S1, S2. No S3 gallop. LUNGS: Clear bilaterally. EXTREMITIES: No clubbing, cyanosis or edema. Calves are nontender to palpation. GASTROINTESTINAL: Abdomen is soft, nontender and nondistended. Bowel sounds are positive. SKIN: No acute rash. NEUROLOGIC: Exam limited at the present time. IMPRESSION: 1. Rule out gastroenteritis. 2. Dehydration. 3. Chronic obstructive pulmonary disease. 4. Coronary artery disease. PLAN: The patient appears very comfortable this morning. She is not short of breath at rest. She does state to feeling better overall. Her diarrhea is subsiding. On physical exam, her lungs remain clear. In addition, the oxygen saturation on room air is 95%. I will continue the current nebulizer treatments and inhaled steroids for now. The patient is also on Spiriva. Inputs by Cardiology and Gastroenterology are also noted. Clinical status of the patient is certainly improved - compared to the initial presentation. I will discuss the above with the attending physician. Antonio Green MD MTDD
[2019-02-19] MEDS: Budesonide 0.5 mg/2 ml Inhal Susp UD IH SCH ×2 (08:25→20:18)
[2019-02-19] MEDS: Arformoterol 15 mcg/2 ml Inh Sol IH SCH ×2 (08:25→20:18)
[2019-02-19] MEDS: Non Formulary Medication (Ezetimibe/Simvastatin [Vytorin 10-40 Mg Tablet] 1 TAB) PO SCH (10:37)
[2019-02-19] MEDS: Potassium Chloride 10 mEq ER Tab PO SCH ×2 (10:37→18:02)
[2019-02-19] MEDS: Pantoprazole 40 mg EC Tab PO SCH (10:37)
[2019-02-19] MEDS: Lidocaine 5% Patch TD SCH (10:38)
[2019-02-19] MEDS: Tiotropium 18 mcg Cap For Inhalation IH SCH (10:38)
[2019-02-19] MEDS: Insulin Reg-LOW-Coverage SC SCH ×4 (10:38→22:43)
[2019-02-19] MEDS ORDERED: Potassium Chloride 20 mEq ER Tab PO ONE (14:10)
--- NOTE | 2019-02-19 18:28 | PN ---
DATE: 02/19/2019 LOCATION: The patient is in room 564, bed 1. REASON FOR CONSULTATION: Coronary artery disease, history of CABG; admitted with altered mental status, diarrhea, and vomiting. SUBJECTIVE: The patient is lying flat in bed without chest pain, shortness of breath, or palpitation. PHYSICAL EXAMINATION: The patient on examination; VITAL SIGNS: Blood pressure 114/63, respiration 17, pulse 76, and temperature 97.5. HEENT: Head is normocephalic. Eyes; pupils normal. Conjunctivae normal. Nose and throat normal. NECK: JVP low. Carotids are equal. THORAX: AP diameter normal. LUNGS: Clear. CARDIOVASCULAR: S1 and S2. ABDOMEN: Soft. No tenderness. No organomegaly. Bowel sounds normal. EXTREMITIES: No clubbing. No cyanosis. LABORATORY DATA: WBC 5.7, hemoglobin 12.5, hematocrit 38.5, and platelet 235. Blood sugar 178. DIAGNOSES: Coronary artery disease, quadruple bypass in 2006; history of carcinoma of ovarian; history of fibroid uterus, negative for malignancy; history of malleolar fracture in the past; altered mental status; vomiting and diarrhea. There is no evidence of acute myocardial infarction at present moment. The patient had echocardiogram on 02/18/2019, showed normal chamber sizes, ejection fraction 60% to 65%, trace mitral regurgitation, trace tricuspid regurgitation, trace aortic regurgitation, right ventricular systolic pressure only 17 mmHg. No vegetation. No thrombus. The patient's thyroid stimulating hormone is low, less than 0.02 and diabetes mellitus. PLAN: The patient is on Amaryl 4 mg b.i.d., aspirin 81 mg daily, losartan 100 mg daily, ezetimibe/simvastatin 1 tablet daily, folic acid 1 mg daily, metformin 500 mg p.o. b.i.d., metoprolol tartrate 50 mg daily, potassium 10 mEq p.o. b.i.d., ibuprofen 600 mg p.o. every 8 hours p.r.n., Protonix 40 daily, Spiriva 18 mcg inhalation daily, and Xanax 1 mg p.o. t.i.d. We will continue present therapy. The patient probably had viral gastroenteritis. TSH is low. We will repeat T3, free T4, and TSH again. Potassium is low. We will give extra potassium. I will repeat labs in the morning. The patient is started 10 mEq p.o. b.i.d. by Dr. Guillory, we will also give 40 mg p.o. stat and then give 10 mEq of potassium chloride rider also, and we will repeat labs in the morning. We will follow with you. Melanie Emery MD
--- NOTE | 2019-02-20 06:10 | CP.PCM.PN ---
Subjective - Date & Time of Evaluation Date of Evaluation: 02/20/19 Time of Evaluation: 06:09 - Subjective Subjective: # 22 agnicath was inserted i right hand. Patient has no acute symptoms now. VSS. Objective - Vital Signs/Intake and Output Vital Signs (last 24 hours): Temp Pulse Resp BP Pulse Ox 97.4 F L 51 L 16 122/71 98 02/19/19 22:41 02/19/19 22:41 02/19/19 22:41 02/19/19 22:41 02/19/19 22:41 - Medications Medications: Current Medications Acetaminophen (Tylenol 325mg Tab) 650 mg PO Q4H PRN PRN Reason: Pain, Mild (1-3) Last Admin: 02/20/19 05:31 Dose: 650 mg Albuterol Sulfate (Albuterol 0.5% Inhal Chiquita (2.5 Mg/0.5 Ml) Ud) 2.5 mg IH [id number] PRN PRN Reason: Shortness of Breath Alprazolam (Xanax) 1 mg PO TID [facility] Last Admin: 02/19/19 18:02 Dose: Not Given Arformoterol Tartrate (Brovana) 15 mcg IH [id number] [facility] Last Admin: 02/19/19 20:18 Dose: 15 mcg Aspirin (Aspirin Chewable) 81 mg PO DAILY [facility] Last Admin: 02/19/19 10:36 Dose: 81 mg Benzocaine/Menthol (Cepacol Sore Throat) 1 [place] Q2H PRN PRN Reason: Sore Throat Budesonide (Pulmicort Respules) 0.5 mg IH [id number] [facility] Last Admin: 02/19/19 20:18 Dose: 0.5 mg Folic Acid (Folic Acid) 1 mg PO DAILY [facility] Last Admin: 02/19/19 10:37 Dose: 1 mg Glimepiride (Amaryl) 4 mg PO BID [facility] Last Admin: 02/19/19 18:01 Dose: 4 mg Hydralazine HCl (Apresoline) 10 mg IVP Q6 PRN PRN Reason: SBP above 160 mmHg Ibuprofen (Motrin Tab) 600 mg PO Q8 PRN PRN Reason: Pain, severe (8-10) Last Admin: 02/19/19 10:42 Dose: 600 mg Insulin Human Regular (Humulin R Low) 0 units SC [facility]; Protocol Last Admin: 02/19/19 22:43 Dose: Not Given Lidocaine (Lidoderm) 1 ea TD DAILY [facility] Last Admin: 02/19/19 10:38 Dose: 1 ea Losartan Potassium (Cozaar) 100 mg PO DAILY [facility] Last Admin: 02/19/19 10:36 Dose: 100 mg Metformin HCl (Glucophage) 500 mg PO BID [facility] Last Admin: 02/19/19 18:01 Dose: 500 mg Metoprolol Tartrate (Lopressor) 50 mg PO DAILY [facility] Last Admin: 02/19/19 10:37 Dose: 50 mg Non-Formulary Medication (Ezetimibe/Simvastatin [Vytorin 10-40 Mg Tablet]) 1 tab PO DAILY [facility] Last Admin: 02/19/19 10:37 Dose: 1 tab Ondansetron HCl (Zofran Inj) 4 mg IVP Q6H PRN PRN Reason: Nausea/Vomiting Last Admin: 02/17/19 19:38 Dose: 4 mg Pantoprazole Sodium (Protonix Ec Tab) 40 mg PO ACB [facility] Last Admin: 02/19/19 10:37 Dose: 40 mg Potassium Chloride (Klor-Con 10) 10 meq PO BID [facility] Last Admin: 02/19/19 18:02 Dose: 10 meq Tiotropium [place] (Spiriva) 18 mcg IH DAILY [facility] Last Admin: 02/19/19 10:38 Dose: 18 mcg - Labs Labs: 02/18/19 06:40 02/18/19 06:40 PT 12.4 SECONDS (9.4-12.5) 02/16/19 21:15 INR 1.12 02/16/19 21:15 APTT 23.0 Seconds (26.9-38.3) L 02/16/19 21:15
--- NOTE | 2019-02-20 07:19 | CP.PCM.PN ---
Subjective - Date & Time of Evaluation Date of Evaluation: 02/19/19 - Subjective Subjective: No diarrhea tolerating diet no vomiting Patient is more alert now Objective - Vital Signs/Intake and Output Vital Signs (last 24 hours): Temp Pulse Resp BP Pulse Ox 97.9 F 59 L 18 119/72 95 02/19/19 14:00 02/19/19 14:00 02/19/19 14:00 02/19/19 14:00 02/19/19 14:00 - Medications Medications: Current Medications Acetaminophen (Tylenol 325mg Tab) 650 mg PO Q4H PRN PRN Reason: Pain, Mild (1-3) Albuterol Sulfate (Albuterol 0.5% Inhal Chiquita (2.5 Mg/0.5 Ml) Ud) 2.5 mg IH [id number] PRN PRN Reason: Shortness of Breath Alprazolam (Xanax) 1 mg PO TID [facility] Last Admin: 02/19/19 18:02 Dose: Not Given Arformoterol Tartrate (Brovana) 15 mcg IH [id number] [facility] Last Admin: 02/19/19 20:18 Dose: 15 mcg Aspirin (Aspirin Chewable) 81 mg PO DAILY [facility] Last Admin: 02/19/19 10:36 Dose: 81 mg Benzocaine/Menthol (Cepacol Sore Throat) 1 chino MT Q2H PRN PRN Reason: Sore Throat Budesonide (Pulmicort Respules) 0.5 mg IH [id number] [facility] Last Admin: 02/19/19 20:18 Dose: 0.5 mg Folic Acid (Folic Acid) 1 mg PO DAILY [facility] Last Admin: 02/19/19 10:37 Dose: 1 mg Glimepiride (Amaryl) 4 mg PO BID [facility] Last Admin: 02/19/19 18:01 Dose: 4 mg Hydralazine HCl (Apresoline) 10 mg IVP Q6 PRN PRN Reason: SBP above 160 mmHg Ibuprofen (Motrin Tab) 600 mg PO Q8 PRN PRN Reason: Pain, severe (8-10) Last Admin: 02/19/19 10:42 Dose: 600 mg Insulin Human Regular (Humulin R Low) 0 units SC [facility]; Protocol Last Admin: 02/19/19 18:01 Dose: Not Given Lidocaine (Lidoderm) 1 ea TD DAILY [facility] Last Admin: 02/19/19 10:38 Dose: 1 ea Losartan Potassium (Cozaar) 100 mg PO DAILY [facility] Last Admin: 02/19/19 10:36 Dose: 100 mg Metformin HCl (Glucophage) 500 mg PO BID [facility] Last Admin: 02/19/19 18:01 Dose: 500 mg Metoprolol Tartrate (Lopressor) 50 mg PO DAILY [facility] Last Admin: 02/19/19 10:37 Dose: 50 mg Non-Formulary Medication (Ezetimibe/Simvastatin [Vytorin 10-40 Mg Tablet]) 1 tab PO DAILY [facility] Last Admin: 02/19/19 10:37 Dose: 1 tab Ondansetron HCl (Zofran Inj) 4 mg IVP Q6H PRN PRN Reason: Nausea/Vomiting Last Admin: 02/17/19 19:38 Dose: 4 mg Pantoprazole Sodium (Protonix Ec Tab) 40 mg PO ACB [facility] Last Admin: 02/19/19 10:37 Dose: 40 mg Potassium Chloride (Klor-Con 10) 10 meq PO BID [facility] Last Admin: 02/19/19 18:02 Dose: 10 meq Tiotropium [place] (Spiriva) 18 mcg IH DAILY [facility] Last Admin: 02/19/19 10:38 Dose: 18 mcg - Labs Labs: 02/18/19 06:40 02/18/19 06:40 PT 12.4 SECONDS (9.4-12.5) 02/16/19 21:15 INR 1.12 02/16/19 21:15 APTT 23.0 Seconds (26.9-38.3) L 02/16/19 21:15 - Head Exam Head Exam: ATRAUMATIC, NORMOCEPHALIC - Eye Exam Eye Exam: EOMI, PERRL - ENT Exam ENT Exam: Mucous Membranes Moist, Normal Oropharynx - Neck Exam Neck Exam: Full ROM. absent: Lymphadenopathy - Respiratory Exam Respiratory Exam: Accessory Muscle Use, NORMAL BREATHING PATTERN - Cardiovascular Exam Cardiovascular Exam: +S1, +S2. absent: JVD - GI/Abdominal Exam GI & Abdominal Exam: Soft. absent: Tenderness, Mass - Neurological Exam Neurological Exam: Alert, Awake, Oriented x3 Assessment and Plan - Assessment and Plan (Free Text) Assessment: This patient presentation is more like gastroenteritis. But patient is more alert tolerating diet. clinically improving. I did speak with the patient's daughter yesterday earlier. Encouraged to Increase p.o. intake. Would benefit from elective GI work-up
[2019-02-20] MEDS ORDERED: Dextrose 5%/0.9% NS 1,000 ML IV SCH (07:45)
[2019-02-20 07:51] VITALS: RESP 18
[2019-02-20] MEDS: Insulin Reg-LOW-Coverage SC SCH ×4 (07:55→23:28)
[2019-02-20 08:26] LABS: FREE T4 1.55 ng/dL (0.78-2.19)
[2019-02-20 08:28] LABS: BLOOD UREA NITROGEN 31 mg/dL (7-21); CALCIUM 8.9 mg/dL (8.4-10.5); GFR NON-AFRICAN AMERICAN 54
[2019-02-20 08:40] LABS: T3 1.23 ng/mL (0.97-1.69)
[2019-02-20] MEDS: Arformoterol 15 mcg/2 ml Inh Sol IH SCH ×2 (08:51→19:36)
[2019-02-20] MEDS: Budesonide 0.5 mg/2 ml Inhal Susp UD IH SCH ×2 (08:51→19:36)
[2019-02-20] MEDS: Non Formulary Medication (Ezetimibe/Simvastatin [Vytorin 10-40 Mg Tablet] 1 TAB) PO SCH (10:10)
[2019-02-20] MEDS: Pantoprazole 40 mg EC Tab PO SCH (10:41)
[2019-02-20] MEDS: Tiotropium 18 mcg Cap For Inhalation IH SCH (10:42)
[2019-02-20] MEDS: Lidocaine 5% Patch TD SCH (10:43)
[2019-02-20 10:57] LABS: HEMOGLOBIN 12.5 g/dL (12.0-16.0); MEAN CELL VOLUME 91.4 fl (80.0-105.0); MEAN CORPUSCULAR HEMOGLOBIN 29.8 pg (25.0-35.0); MEAN CORPUSCULAR HGB CONC 32.6 g/dl (31.0-37.0); MEAN PLATELET VOLUME 12.4 fl (7.0-11.0); RBC 4.2 10^6/uL (3.5-6.1); RED CELL DISTRIBUTION WIDTH 15.3 % (11.5-14.5); WHITE BLOOD COUNT 6.3 10^3/uL (4.5-11.0)
--- NOTE | 2019-02-20 14:51 | PCM.FALL ---
Post Fall Progress Note - Post Fall Fall Date: 02/20/19 Fall Time: 02:45 Description of Fall: 78 year old female with past medical history of CAD status post CABG, emphysema/COPD, diabetes mellitus, ovarian cancer, and hysterectomy presented status post fall. Fall was unwitnessed. Nurse first saw patient as she was sitting on the floor after she had defecated and the patient subsequently slowly laid back against the base of the bed. Patient was AAOx3 at bedside but confused. Patient was unsure if she had hit her head at the time. She reports dizziness, but denied any other symptoms including headache, fever, chest pain, heart palpitations, shortness of breath, nausea, vomiting, constipation, diarrhea, dysuria, hematuria, back pain, neck pain. - Post Fall Exam Vital Sign: Temp Pulse Resp BP Pulse Ox 99 F 68 18 128/78 96 02/20/19 06:00 02/20/19 12:00 02/20/19 12:00 02/20/19 10:43 02/20/19 06:00 Skull Exam: Negative for: Scalp wound, Scalp hematoma, Scalp depression, Ridge in skull Eye Exam: Positive for: Pupils equal, Pupils reactive Ear Exam: Negative for: Bleeding Nose Exam: Negative for: Bleeding Skin Exam: Negative for: Colour, Lacerations, Grazes Mouth Exam: Negative for: Tongue bitten, Teeth dislodge Neck Exam: Negative for: Tenderness, Tingling, Weakness Spinal Exam: Negative for: Tenderness, Tingling, Weakness Chest Exam: Negative for: Difficulty breathing, Tenderness in collar bones, Tenderness in ribs Abdomen Exam: Negative for: Tenderness Pelvic Exam: Negative for: Tenderness Arm Exam: Negative for: Deformity Leg Exam: Negative for: Deformity Impression/Plan: 78 year old female with past medical history of CAD status post CABG, emphysema/COPD, diabetes mellitus, ovarian cancer, and hysterectomy presented to the hospital for generalized weakness, altered mental status, and diarrhea. Patient is currently status post fall. Status post fall -Vital signs are stable. Blood pressure was 126/71, heart rate was 69, temperature was 98.7, and O2 saturation was 98% on room air. POC glucose was in the 170s. -Will obtain Head CT without contrast to rule out intracranial bleed and fracture -Will obtain X ray of entire spine to rule out fracture -Will obtain CBC and CMP to evaluate for anemia or any electrolyte abnormalities leading to her fall. -Will consult Dr. Knight, Neurology, and Dr. Finn, Psychiatry, for further evaluation. Patient plan discussed with Dr. Guillory.
--- NOTE | 2019-02-20 15:47 | CT ---
Date of service: 02/20/2019 PROCEDURE: CT HEAD WITHOUT CONTRAST. HISTORY: rule out intracranial bleed, fracture COMPARISON: CT head dated 02/17/2019. TECHNIQUE: Axial computed tomography images were obtained through the head/brain without intravenous contrast. Radiation dose: Total exam DLP = 728.6 mGy-cm. This CT exam was performed using one or more of the following dose reduction techniques: Automated exposure control, adjustment of the mA and/or kV according to patient size, and/or use of iterative reconstruction technique. FINDINGS: HEMORRHAGE: No intracranial hemorrhage. BRAIN: No mass effect or edema. Mild atrophy. Mild chronic microvascular ischemic changes. VENTRICLES: Unremarkable. No hydrocephalus. CALVARIUM: Unremarkable. PARANASAL SINUSES: Unremarkable as visualized. No significant inflammatory changes. MASTOID AIR CELLS: Unremarkable as visualized. No inflammatory changes. OTHER FINDINGS: None. IMPRESSION: No acute intracranial pathology. Mild age-related changes. No significant interval change.
[2019-02-20 16:29] LABS: BASO # 0.01 K/mm3 (0.0-2.0); BASO % 0.1 % (0.0-3.0); EOS # 0.1 (0.0-0.7); EOS % 0.7 % (1.5-5.0); HEMOGLOBIN 14.1 g/dL (12.0-16.0); LYMPH # 1.3 (1.2-3.4); LYMPH % 19.8 % (22.0-35.0); MEAN CELL VOLUME 91.8 fl (80.0-105.0); MEAN CORPUSCULAR HEMOGLOBIN 29.6 pg (25.0-35.0); MEAN CORPUSCULAR HGB CONC 32.3 g/dl (31.0-37.0); MEAN PLATELET VOLUME 11.2 fl (7.0-11.0); MONO # 0.4 (0.1-0.6); MONO % 6.4 % (1.0-6.0); RBC 4.76 10^6/uL (3.5-6.1); RED CELL DISTRIBUTION WIDTH 15.1 % (11.5-14.5); WHITE BLOOD COUNT 6.7 10^3/uL (4.5-11.0)
--- NOTE | 2019-02-20 16:59 | RAD ---
Date of service: 02/20/2019 PROCEDURE: Spine x-ray HISTORY: rule out spine fracture COMPARISON: None. TECHNIQUE: Twelve views FINDINGS: There multilevel degenerative changes characterized by vertebral body intervertebral disc space height loss with multilevel disc osteophyte complex formation. No acute fracture is evident. IMPRESSION: No acute spine fracture. Multilevel degenerative changes.
[2019-02-20 17:01] LABS: ALB/GLOB RATIO 1.2 (1.1-1.8); ALBUMIN 3.7 g/dL (3.0-4.8); CALCIUM 9.2 mg/dL (8.4-10.5)
--- NOTE | 2019-02-20 22:09 | PN ---
DATE: 02/20/2019 PULMONARY PROGRESS NOTE SUBJECTIVE: Eli is sitting in the chair, awake and alert. She feels well. She denies shortness of breath or other respiratory complaints. PHYSICAL EXAMINATION: GENERAL: She is in no acute distress. VITAL SIGNS: She remains afebrile with a good respiratory rate of 16, O2 saturation of 96% on room air. HEENT: Normocephalic, atraumatic. NECK: Supple. No jugular venous distention or bruit. CARDIOVASCULAR: Regular rhythm. S1, S2, without murmur, gallop or rub. LUNGS: Clear to percussion and auscultation. GASTROINTESTINAL: Soft. Bowel sounds normoactive. EXTREMITIES: Reveal no clubbing, cyanosis or edema. Evaluation of her lower extremities reveal no evidence of deep vein thrombosis. SKIN: Shows no redness or excoriation. NEUROLOGIC: No focal findings. CLINICAL IMPRESSION: Chronic obstructive pulmonary disease, stable. Coronary artery disease. PLAN: Continue vigorous bronchodilator therapy as received. Follow up with Gastroenterology and Cardiology. We will be happy to see Eli as the situation requires. Please feel free to contact us if further intervention is needed. She is definitely comfortable at this time with no signs of acute exacerbation on examination. Scooter Su MD
[2019-02-21] MEDS: Arformoterol 15 mcg/2 ml Inh Sol IH SCH ×2 (07:33→20:19)
[2019-02-21] MEDS: Budesonide 0.5 mg/2 ml Inhal Susp UD IH SCH ×2 (07:33→20:19)
[2019-02-21] MEDS: Insulin Reg-LOW-Coverage SC SCH ×4 (07:55→22:06)
[2019-02-21] MEDS: Lidocaine 5% Patch TD SCH (09:33)
[2019-02-21] MEDS: Pantoprazole 40 mg EC Tab PO SCH (09:34)
[2019-02-21] MEDS: Tiotropium 18 mcg Cap For Inhalation IH SCH (09:35)
[2019-02-21] MEDS: Non Formulary Medication (Ezetimibe/Simvastatin [Vytorin 10-40 Mg Tablet] 1 TAB) PO SCH (10:00)
[2019-02-21] MEDS ORDERED: Dextrose 5%/0.2% NS 500 ML IV SCH (18:00)
--- NOTE | 2019-02-21 18:39 | CP.PCM.PN ---
Subjective - Date & Time of Evaluation Date of Evaluation: 02/21/19 Time of Evaluation: 10:45 - Subjective Subjective: Patient more alert now. Off IV fluid. No complaints of abdominal pain. No vomiting or diarrhea. Previous events noticed. Change of mental status. History of fall. Objective - Vital Signs/Intake and Output Vital Signs (last 24 hours): Temp Pulse Resp BP Pulse Ox 98.3 F 71 18 89/51 L 94 L 02/21/19 14:00 02/21/19 14:00 02/21/19 14:00 02/21/19 14:00 02/21/19 14:00 - Medications Medications: Current Medications Acetaminophen (Tylenol 325mg Tab) 650 mg PO Q4H PRN PRN Reason: Pain, Mild (1-3) Last Admin: 02/20/19 05:31 Dose: 650 mg Albuterol Sulfate (Albuterol 0.5% Inhal Chiquita (2.5 Mg/0.5 Ml) Ud) 2.5 mg IH [id number] PRN PRN Reason: Shortness of Breath Alprazolam (Xanax) 0.5 mg PO AMHS [facility]; Protocol Last Admin: 02/21/19 11:47 Dose: Not Given Arformoterol Tartrate (Brovana) 15 mcg IH [id number] [facility] Last Admin: 02/21/19 07:33 Dose: Not Given Aspirin (Aspirin Chewable) 81 mg PO DAILY [facility] Last Admin: 02/21/19 09:33 Dose: 81 mg Benzocaine/Menthol (Cepacol Sore Throat) 1 chino MT Q2H PRN PRN Reason: Sore Throat Budesonide (Pulmicort Respules) 0.5 mg IH [id number] [facility] Last Admin: 02/21/19 07:33 Dose: Not Given Folic Acid (Folic Acid) 1 mg PO DAILY [facility] Last Admin: 02/21/19 09:33 Dose: 1 mg Glimepiride (Amaryl) 4 mg PO BID [facility] Last Admin: 02/21/19 17:31 Dose: 4 mg Hydralazine HCl (Apresoline) 10 mg IVP Q6 PRN PRN Reason: SBP above 160 mmHg Dextrose/Sodium Chloride (Dextrose 5%/0.2% Ns 500 Ml) 500 mls @ 60 mls/hr IV .[id number] [facility] Insulin Human Regular (Humulin R Low) 0 units SC ACHS [facility]; Protocol Last Admin: 02/21/19 16:34 Dose: Not Given Lidocaine (Lidoderm) 1 ea TD DAILY [facility] Last Admin: 02/21/19 09:33 Dose: 1 ea Lorazepam (Ativan) 1 mg PO BID PRN; Protocol PRN Reason: Agitation Losartan Potassium (Cozaar) 100 mg PO DAILY [facility] Last Admin: 02/21/19 09:33 Dose: 100 mg Metformin HCl (Glucophage) 500 mg PO BID [facility] Last Admin: 02/21/19 17:31 Dose: 500 mg Metoprolol Tartrate (Lopressor) 50 mg PO DAILY [facility] Last Admin: 02/21/19 09:34 Dose: 50 mg Non-Formulary Medication (Ezetimibe/Simvastatin [Vytorin 10-40 Mg Tablet]) 1 tab PO DAILY [facility] Last Admin: 02/21/19 10:00 Dose: Not Given Ondansetron HCl (Zofran Inj) 4 mg IVP Q6H PRN PRN Reason: Nausea/Vomiting Last Admin: 02/17/19 19:38 Dose: 4 mg Pantoprazole Sodium (Protonix Ec Tab) 40 mg PO ACB [facility] Last Admin: 02/21/19 09:34 Dose: 40 mg Tiotropium [place] (Spiriva) 18 mcg IH DAILY [facility] Last Admin: 02/21/19 09:35 Dose: 18 mcg - Labs Labs: 02/20/19 14:46 02/20/19 16:00 PT 12.4 SECONDS (9.4-12.5) 02/16/19 21:15 INR 1.12 02/16/19 21:15 APTT 23.0 Seconds (26.9-38.3) L 02/16/19 21:15 - Constitutional Appears: Well, Non-toxic - Head Exam Head Exam: ATRAUMATIC, NORMOCEPHALIC - Eye Exam Eye Exam: EOMI - ENT Exam ENT Exam: Mucous Membranes Moist, Normal Oropharynx - Respiratory Exam Respiratory Exam: NORMAL BREATHING PATTERN. absent: Accessory Muscle Use - Cardiovascular Exam Cardiovascular Exam: +S1, +S2. absent: JVD - GI/Abdominal Exam GI & Abdominal Exam: Soft, Normal Bowel Sounds. absent: Tenderness, Mass - Extremities Exam Extremities Exam: absent: Calf Tenderness, Pedal Edema - Back Exam Back Exam: absent: CVA tenderness (L) Assessment and Plan - Assessment and Plan (Free Text) Assessment: This 78-year-old patient was admitted with the episodes of diarrhea and to change of mental status. There was no further documented diarrhea while in the hospital. Patient did have episodes of vomiting. Patient was placed on IV fluids Patient had a good clinical improvement. The mental status again was found to be fluctuating Labs reviewed showed elevated BUN Reduced p.o. intake Would benefit from IV fluids. Would recommend CT scan of the abdomen and pelvis with only p.o. contrast to further evaluate. Follow-up of the electrolytes labs in a.m. discussed with Dr. Guillory earlier today
--- NOTE | 2019-02-21 18:42 | CON ---
DATE: 02/21/2019 HISTORY OF PRESENT ILLNESS: The patient is a 78-year-old female with no prior psychiatric history including any consultations in psychiatry in the past. She is being treated on the medical floor for her altered mental status, as well as GI complaints. Psychiatry was consulted due to her altered mental status, which is very much likely due to delirium. I met with the patient at bedside and her focus is inconsistent and her memory is also inconsistent; however, her ability to retrieve memories is also inconsistent; however, she denies any depression and anxiety. She is unable to provide the month; however, when I gave her a choice between January and November, she knows that it is January. At times, she forgets where she is, I have to remind repeatedly that she is in the hospital. Does not typically hallucinating. She denies any perceptional disturbance in this respect. She is not responding to internal stimuli. Again, she appears to have waxing and waning levels of awareness of her situation and environment. She does not appear to be in any discomfort either physically or psychologically. She is not aware of why she was given Xanax on the unit either. Her insight and judgment are considered to be impaired. SOCIAL HISTORY: The patient was born and raised in [place]. She is . The patient reports that her at age 25 in the . She has two children; however, her son also in the service. She has a daughter who lives upstairs from her and has two children. The patient reports some conflict with her daughter. She feels that her daughter likes money too much and her daughter needs to give her more attention. The patient denies any drug or alcohol issues. PAST PSYCHIATRIC HISTORY: The patient denies any psychiatric history. MEDICATIONS: Ativan 1 mg b.i.d. p.r.n., which the patient did not receive any doses while she was on the unit. The patient used to take Xanax 1 mg p.o. t.i.d. and she received a total of seven doses since 02/17/2019 and apparently the patient's last dose was on 02/19/2019 at 2 a.m. and she was abruptly discontinued. IMPRESSION: Delirium, likely possible benzodiazepine withdrawal as well although she only received it for a few days, these doses of Xanax are high, especially for a 78-year-old. RECOMMENDATIONS: Xanax will be restarted and anytime you want to discontinue Xanax, you have to be tapered and not discontinued abruptly. Xanax will be restarted by this provider at 0.5 mg p.o. a.m. and at bedtime and that should be continued and tapered slowly by the medical team. Otherwise, Psychiatry will sign off at this time, reconsult p.r.n. Aleksey Bolden MD
[2019-02-21] MEDS: Sodium Chloride 0.9% 1,000 ML IV SCH (19:45)
[2019-02-22] MEDS ORDERED: Barium Sulfate Susp 2.1% w/v, 2.0% w/w 450 mL Bottle PO ONE (03:04)
[2019-02-22] MEDS: Pantoprazole 40 mg EC Tab PO SCH (06:44)
--- NOTE | 2019-02-22 07:07 | CP.PCM.PN ---
Subjective - Date & Time of Evaluation Date of Evaluation: 02/22/19 Time of Evaluation: 06:30 - Subjective Subjective: Awake, no distress, lying in bed, 1:1 sitter Reason for consultation and follow up:Cardiac follow up, history coronary artery disease, post CABG, admitted for altered mental status,generalized weakness and diarrhea. Seen and examined by me and Dr. An Objective - Vital Signs/Intake and Output Vital Signs (last 24 hours): Temp Pulse Resp BP Pulse Ox 98.0 F 61 18 98/58 L 95 02/21/19 22:00 02/21/19 22:00 02/21/19 22:00 02/21/19 22:00 02/21/19 22:00 - Medications Medications: Current Medications Acetaminophen (Tylenol 325mg Tab) 650 mg PO Q4H PRN PRN Reason: Pain, Mild (1-3) Last Admin: 02/20/19 05:31 Dose: 650 mg Albuterol Sulfate (Albuterol 0.5% Inhal Chiquita (2.5 Mg/0.5 Ml) Ud) 2.5 mg IH [id number] PRN PRN Reason: Shortness of Breath Alprazolam (Xanax) 0.5 mg PO [facility]; Protocol Last Admin: 02/21/19 21:52 Dose: 0.5 mg Arformoterol Tartrate (Brovana) 15 mcg IH [id number] [facility] Last Admin: 02/21/19 20:19 Dose: 15 mcg Aspirin (Aspirin Chewable) 81 mg PO DAILY [facility] Last Admin: 02/21/19 09:33 Dose: 81 mg Benzocaine/Menthol (Cepacol Sore Throat) 1 chino MT Q2H PRN PRN Reason: Sore Throat Budesonide (Pulmicort Respules) 0.5 mg IH [id number] [facility] Last Admin: 02/21/19 20:19 Dose: 0.5 mg Folic Acid (Folic Acid) 1 mg PO DAILY [facility] Last Admin: 02/21/19 09:33 Dose: 1 mg Glimepiride (Amaryl) 4 mg PO BID [facility] Last Admin: 02/21/19 17:31 Dose: 4 mg Hydralazine HCl (Apresoline) 10 mg IVP Q6 PRN PRN Reason: SBP above 160 mmHg Sodium Chloride (Sodium Chloride 0.9%) 1,000 mls @ 60 mls/hr IV .[id number] [facility] Last Admin: 02/21/19 19:45 Dose: 60 mls/hr Insulin Human Regular (Humulin R Low) 0 units SC ACHS [facility]; Protocol Last Admin: 02/21/19 22:06 Dose: Not Given Lidocaine (Lidoderm) 1 ea TD DAILY [facility] Last Admin: 02/21/19 09:33 Dose: 1 ea Lorazepam (Ativan) 1 mg PO BID PRN; Protocol PRN Reason: Agitation Losartan Potassium (Cozaar) 100 mg PO DAILY [facility] Last Admin: 02/21/19 09:33 Dose: 100 mg Metformin HCl (Glucophage) 500 mg PO BID [facility] Last Admin: 02/21/19 17:31 Dose: 500 mg Metoprolol Tartrate (Lopressor) 50 mg PO DAILY [facility] Last Admin: 02/21/19 09:34 Dose: 50 mg Non-Formulary Medication (Ezetimibe/Simvastatin [Vytorin 10-40 Mg Tablet]) 1 tab PO DAILY [facility] Last Admin: 02/21/19 10:00 Dose: Not Given Ondansetron HCl (Zofran Inj) 4 mg IVP Q6H PRN PRN Reason: Nausea/Vomiting Last Admin: 02/17/19 19:38 Dose: 4 mg Pantoprazole Sodium (Protonix Ec Tab) 40 mg PO ACB [facility] Last Admin: 02/22/19 06:44 Dose: 40 mg Tiotropium [place] (Spiriva) 18 mcg IH DAILY [facility] Last Admin: 02/21/19 09:35 Dose: 18 mcg - Labs Labs: 02/20/19 14:46 02/20/19 16:00 PT 12.4 SECONDS (9.4-12.5) 02/16/19 21:15 INR 1.12 02/16/19 21:15 APTT 23.0 Seconds (26.9-38.3) L 02/16/19 21:15 - Constitutional Appears: Non-toxic, No Acute Distress - Head Exam Head Exam: NORMAL INSPECTION, NORMOCEPHALIC - Eye Exam Eye Exam: Normal appearance Pupil Exam: NORMAL ACCOMODATION - ENT Exam ENT Exam: Mucous Membranes Moist, Normal Exam - Respiratory Exam Respiratory Exam: Decreased Breath Sounds, Clear to Ausculation Bilateral, NORMAL BREATHING PATTERN - Cardiovascular Exam Cardiovascular Exam: +S1, +S2 - GI/Abdominal Exam GI & Abdominal Exam: Soft, Normal Bowel Sounds - Extremities Exam Extremities Exam: Full ROM, Normal Capillary Refill - Neurological Exam Neurological Exam: Alert, Awake - Psychiatric Exam Psychiatric exam: Normal Affect, Normal Mood - Skin Skin Exam: Dry, Normal Color, Warm Assessment and Plan - Assessment and Plan (Free Text) Assessment: A 78 year old female who came in to the ER due to altered mental status, generalized weakness and diarrhea. History of coronary artery disease, post CABG in 2006, ovarian cancer in 2009, with hysterectomy, fibroid in 2011, hypertension, COPD, GERD,history of malleolar fracture and was hospitalized then sent to rehab. EKG shows sinus bradycardia with PAC's, ST-T changes consistent with ischemia. Denies chest pain. Rule out acute myocardial infarction. No previous cardiac work up done at [facility]. Will check office chart. Echo done and showed LVEF 60-65%, trace MR/TR/AR RVSP 17 mmHg, . Had an unwitness fall over the weekend. Negative for brain hemorrhage or fracture. 1:1 sitter initiated. Cardiac status stable. GI on consult and work up in progress. Plan: Post fall over the weekend 1:1 sitter Denies chest pain, no distress Blood pressure controlled Heart rate stable On ASA 81 mg daily, Cozaar 100 mg daily,Lopressor 50 mg daily Continue current management Continue current treatment GI on consult, GI work up in progress Will follow up Plan and treatment discussed with Dr. An
[2019-02-22] MEDS: Arformoterol 15 mcg/2 ml Inh Sol IH SCH ×2 (07:18→19:15)
[2019-02-22] MEDS: Budesonide 0.5 mg/2 ml Inhal Susp UD IH SCH ×2 (07:18→19:15)
--- NOTE | 2019-02-22 10:35 | CT ---
Date of service: 02/22/2019 PROCEDURE: CT Abdomen and Pelvis without intravenous contrast HISTORY: vomitting r/o enteritis COMPARISON: None. TECHNIQUE: Without contrast. Contrast dose: Radiation dose: Total exam DLP = 190.82 mGy-cm. This CT exam was performed using one or more of the following dose reduction techniques: Automated exposure control, adjustment of the mA and/or kV according to patient size, and/or use of iterative reconstruction technique. FINDINGS: LOWER THORAX: Unremarkable. LIVER: Unremarkable. No gross lesion or ductal dilatation. GALLBLADDER AND BILE DUCTS: Unremarkable. PANCREAS: Unremarkable. No gross lesion or ductal dilatation. SPLEEN: Unremarkable. ADRENALS: Unremarkable. No mass. KIDNEYS AND URETERS: Unremarkable. No hydronephrosis. No solid mass. Large bilateral renal cysts. VASCULATURE: Unremarkable. No aortic aneurysm. Aortic calcification. BOWEL: Unremarkable. No obstruction. No gross mural thickening. APPENDIX: Unremarkable. Normal appendix. PERITONEUM: Unremarkable. No free fluid. No free air. There is focal bulging and thinning of the abdominal wall just above the symphysis pubis. LYMPH NODES: Unremarkable. No enlarged lymph nodes. BLADDER: Unremarkable. REPRODUCTIVE: Unremarkable. BONES: No acute fracture. OTHER FINDINGS: None. IMPRESSION: Unremarkable non contrast enhanced CT of the abdomen and pelvis.
--- NOTE | 2019-02-22 11:03 | CP.PCM.PCO ---
Additional Comments - Additional Comments Additional Comments: Seen and examined pt at bedside. In no acute distress. Denies abdominal pain, nausea, vomiting or diarrhea. Pt is s/p fall. Physical therapy to re- evaluate. Will continue to follow.
[2019-02-22] MEDS: Lidocaine 5% Patch TD SCH (11:21)
[2019-02-22] MEDS: Insulin Reg-LOW-Coverage SC SCH ×4 (11:21→22:45)
[2019-02-22] MEDS: Non Formulary Medication (Ezetimibe/Simvastatin [Vytorin 10-40 Mg Tablet] 1 TAB) PO SCH (11:22)
[2019-02-22] MEDS: Tiotropium 18 mcg Cap For Inhalation IH SCH (11:50)
[2019-02-22] MEDS: Sodium Chloride 0.9% 1,000 ML IV SCH (12:21)
--- NOTE | 2019-02-22 20:39 | CP.PCM.PN ---
Subjective - Date & Time of Evaluation Date of Evaluation: 02/22/19 Time of Evaluation: 16:45 - Subjective Subjective: Patient comfortable. P.o. intake better on IV hydration. Objective - Vital Signs/Intake and Output Vital Signs (last 24 hours): Temp Pulse Resp BP Pulse Ox 97.4 F L 50 L 18 147/62 98 02/22/19 13:57 02/22/19 13:57 02/22/19 13:57 02/22/19 13:57 02/22/19 13:57 - Medications Medications: Current Medications Acetaminophen (Tylenol 325mg Tab) 650 mg PO Q4H PRN PRN Reason: Pain, Mild (1-3) Last Admin: 02/20/19 05:31 Dose: 650 mg Albuterol Sulfate (Albuterol 0.5% Inhal Chiquita (2.5 Mg/0.5 Ml) Ud) 2.5 mg IH [id number] PRN PRN Reason: Shortness of Breath Alprazolam (Xanax) 0.5 mg PO AMHS [facility]; Protocol Last Admin: 02/22/19 11:09 Dose: 0.5 mg Arformoterol Tartrate (Brovana) 15 mcg IH [id number] [facility] Last Admin: 02/22/19 19:15 Dose: Not Given Aspirin (Aspirin Chewable) 81 mg PO DAILY [facility] Last Admin: 02/22/19 11:09 Dose: 81 mg Benzocaine/Menthol (Cepacol Sore Throat) 1 chino MT Q2H PRN PRN Reason: Sore Throat Budesonide (Pulmicort Respules) 0.5 mg IH [id number] [facility] Last Admin: 02/22/19 19:15 Dose: Not Given Folic Acid (Folic Acid) 1 mg PO DAILY [facility] Last Admin: 02/22/19 11:09 Dose: 1 mg Glimepiride (Amaryl) 4 mg PO BID [facility] Last Admin: 02/22/19 17:41 Dose: 4 mg Hydralazine HCl (Apresoline) 10 mg IVP Q6 PRN PRN Reason: SBP above 160 mmHg Sodium Chloride (Sodium Chloride 0.9%) 1,000 mls @ 60 mls/hr IV .[id number] [facility] Last Admin: 02/22/19 12:21 Dose: 60 mls/hr Insulin Human Regular (Humulin R Low) 0 units SC ACHS [facility]; Protocol Last Admin: 02/22/19 17:31 Dose: Not Given Lidocaine (Lidoderm) 1 ea TD DAILY [facility] Last Admin: 02/22/19 11:21 Dose: Not Given Lorazepam (Ativan) 1 mg PO BID PRN; Protocol PRN Reason: Agitation Metformin HCl (Glucophage) 500 mg PO BID [facility] Last Admin: 02/22/19 17:41 Dose: 500 mg Metoprolol Tartrate (Lopressor) 50 mg PO DAILY [facility] Last Admin: 02/22/19 11:09 Dose: 50 mg Non-Formulary Medication (Ezetimibe/Simvastatin [Vytorin 10-40 Mg Tablet]) 1 tab PO DAILY [facility] Last Admin: 02/22/19 11:22 Dose: Not Given Ondansetron HCl (Zofran Inj) 4 mg IVP Q6H PRN PRN Reason: Nausea/Vomiting Last Admin: 02/17/19 19:38 Dose: 4 mg Pantoprazole Sodium (Protonix Ec Tab) 40 mg PO ACB [facility] Last Admin: 02/22/19 06:44 Dose: 40 mg Tiotropium [place] (Spiriva) 18 mcg IH DAILY [facility] Last Admin: 02/22/19 11:50 Dose: 18 mcg - Labs Labs: 02/20/19 14:46 02/22/19 06:20 PT 12.4 SECONDS (9.4-12.5) 02/16/19 21:15 INR 1.12 02/16/19 21:15 APTT 23.0 Seconds (26.9-38.3) L 02/16/19 21:15 - Constitutional Appears: Well, No Acute Distress - Head Exam Head Exam: NORMOCEPHALIC - Eye Exam Eye Exam: EOMI. absent: Scleral icterus - ENT Exam ENT Exam: Mucous Membranes Moist, Normal Oropharynx - Neck Exam Neck Exam: Full ROM. absent: Lymphadenopathy - Respiratory Exam Respiratory Exam: NORMAL BREATHING PATTERN. absent: Accessory Muscle Use - Cardiovascular Exam Cardiovascular Exam: +S1, +S2. absent: JVD - GI/Abdominal Exam GI & Abdominal Exam: Soft, Normal Bowel Sounds. absent: Tenderness, Mass - Neurological Exam Neurological Exam: Alert, Awake, Oriented x3 Assessment and Plan - Assessment and Plan (Free Text) Assessment: This 78-year-old patient with a past medical history of ovarian cancer, coronary artery disease status post CABG admitted with the diarrhea. Patient has episodes of vomiting while in the hospital. Patient did have fluctuating mental status Patient was found to have increased BUN and prerenal acidemia. Started on IV fluid now. Patient is more alert now. Diabetes mellitus CT scan was reviewed. There is a large amount of stool present in the rectum patient did have however after the CAT scan with good bowel movement. Continue IV fluids and follow-up the electrolytes and in the a.m.
[2019-02-22] MEDS: Haloperidol Lactate 2 mg/ml Liquid PO SCH (21:09)
[2019-02-22] MEDS ORDERED: Dextrose 50% SYRINGE Inj (50 ml) IV PRN (23:41)
[2019-02-22] MEDS ORDERED: Dextrose 5%/0.9% NS 1,000 ML IV SCH (23:45)
--- NOTE | 2019-02-23 00:12 | CON ---
DATE: 02/22/2019 HISTORY OF PRESENT ILLNESS: A 78-year-old female, with past medical history of coronary artery disease status post bypass, came with the altered mental status after having diarrhea and vomiting. The patient was dehydrated and hard to evaluate the patient. PAST MEDICAL HISTORY: Coronary artery disease, history of ovarian CA, and fibroid. PAST SURGICAL HISTORY: Bypass. PHYSICAL EXAMINATION: HEENT: Normocephalic and atraumatic. NECK: Supple. NEUROLOGIC: Awake and oriented to self. Cranial nerves II through XII are tested. Pupils reactive. Spontaneous movement of extremities noted. Deep tendon reflexes 1+. Plantars are downgoing. Sensory appears intact. Cerebellar, gait deferred. IMPRESSION AND PLAN: Altered mental status secondary to possibly dehydration, nausea, vomiting, and diarrhea. Workup in progress. 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 Continue present management. We will follow up. Deniz Knight MD
[2019-02-23] MEDS: Pantoprazole 40 mg EC Tab PO SCH (06:29)
--- NOTE | 2019-02-23 06:48 | CP.PCM.PN ---
Subjective - Date & Time of Evaluation Date of Evaluation: 02/23/19 Time of Evaluation: 06:30 - Subjective Subjective: Awake, no distress, lying in bed Reason for consultation and follow up:Cardiac follow up, history coronary artery disease, post CABG, admitted for altered mental status,generalized weakness and diarrhea. Seen and examined by me and Dr. An Objective - Vital Signs/Intake and Output Vital Signs (last 24 hours): Temp Pulse Resp BP Pulse Ox 98.2 F 54 L 18 127/63 96 02/22/19 22:58 02/22/19 22:58 02/22/19 22:58 02/22/19 22:58 02/22/19 22:58 Intake and Output: 02/22/19 02/23/19 18:59 06:59 Intake Total 960 Balance 960 - Medications Medications: Current Medications Acetaminophen (Tylenol 325mg Tab) 650 mg PO Q4H PRN PRN Reason: Pain, Mild (1-3) Last Admin: 02/20/19 05:31 Dose: 650 mg Albuterol Sulfate (Albuterol 0.5% Inhal Chiquita (2.5 Mg/0.5 Ml) Ud) 2.5 mg IH [id number] PRN PRN Reason: Shortness of Breath Alprazolam (Xanax) 0.5 mg PO HS [facility]; Protocol Last Admin: 02/22/19 21:09 Dose: 0.5 mg Alprazolam (Xanax) 0.25 mg PO BID [facility]; Protocol Stop: 03/02/19 10:01 Arformoterol Tartrate (Brovana) 15 mcg IH [id number] [facility] Last Admin: 02/22/19 19:15 Dose: Not Given Aspirin (Aspirin Chewable) 81 mg PO DAILY [facility] Last Admin: 02/22/19 11:09 Dose: 81 mg Benzocaine/Menthol (Cepacol Sore Throat) 1 chino MT Q2H PRN PRN Reason: Sore Throat Budesonide (Pulmicort Respules) 0.5 mg IH [id number] [facility] Last Admin: 02/22/19 19:15 Dose: Not Given Dextrose (Dextrose 50% Inj) 0 ml IV STAT PRN; Protocol PRN Reason: Hypoglycemia Protocol Folic Acid (Folic Acid) 1 mg PO DAILY [facility] Last Admin: 02/22/19 11:09 Dose: 1 mg Glimepiride (Amaryl) 4 mg PO BID [facility] Last Admin: 02/22/19 17:41 Dose: 4 mg Haloperidol Lactate (Haldol) 0.25 mg PO [facility]; Protocol Last Admin: 02/22/19 21:09 Dose: 0.25 mg Hydralazine HCl (Apresoline) 10 mg IVP Q6 PRN PRN Reason: SBP above 160 mmHg Dextrose/Sodium Chloride (Dextrose 5%/0.9% Ns 1000 Ml) 1,000 mls @ 60 mls/hr IV .[id number] [facility] Last Admin: 02/22/19 23:48 Dose: 60 mls/hr Dextrose (Dextrose 5% In Water 1000 Ml) 1,000 mls @ 0 mls/hr IV .Q0M PRN; Protocol PRN Reason: Hypoglycemia Protocol Insulin Human Regular (Humulin R Low) 0 units SC [facility]; Protocol Last Admin: 02/22/19 22:45 Dose: Not Given Lidocaine (Lidoderm) 1 ea TD DAILY [facility] Last Admin: 02/22/19 11:21 Dose: Not Given Lorazepam (Ativan) 1 mg PO BID PRN; Protocol PRN Reason: Agitation Metformin HCl (Glucophage) 500 mg PO BID [facility] Last Admin: 02/22/19 17:41 Dose: 500 mg Metoprolol Tartrate (Lopressor) 50 mg PO DAILY [facility] Last Admin: 02/22/19 11:09 Dose: 50 mg Non-Formulary Medication (Ezetimibe/Simvastatin [Vytorin 10-40 Mg Tablet]) 1 tab PO DAILY [facility] Last Admin: 02/22/19 11:22 Dose: Not Given Ondansetron HCl (Zofran Inj) 4 mg IVP Q6H PRN PRN Reason: Nausea/Vomiting Last Admin: 02/17/19 19:38 Dose: 4 mg Pantoprazole Sodium (Protonix Ec Tab) 40 mg PO ACB [facility] Last Admin: 02/23/19 06:29 Dose: 40 mg Tiotropium [place] (Spiriva) 18 mcg IH DAILY [facility] Last Admin: 02/22/19 11:50 Dose: 18 mcg - Labs Labs: 02/20/19 14:46 02/22/19 06:20 PT 12.4 SECONDS (9.4-12.5) 02/16/19 21:15 INR 1.12 02/16/19 21:15 APTT 23.0 Seconds (26.9-38.3) L 02/16/19 21:15 - Constitutional Appears: Non-toxic, No Acute Distress - Head Exam Head Exam: NORMAL INSPECTION, NORMOCEPHALIC - Eye Exam Eye Exam: Normal appearance Pupil Exam: NORMAL ACCOMODATION - ENT Exam ENT Exam: Mucous Membranes Moist, Normal Exam - Respiratory Exam Respiratory Exam: Clear to Ausculation Bilateral, NORMAL BREATHING PATTERN - Cardiovascular Exam Cardiovascular Exam: +S1, +S2 - GI/Abdominal Exam GI & Abdominal Exam: Soft, Normal Bowel Sounds - Extremities Exam Extremities Exam: Full ROM, Normal Capillary Refill - Neurological Exam Neurological Exam: Alert, Awake, Oriented x3 - Psychiatric Exam Psychiatric exam: Normal Affect, Normal Mood - Skin Skin Exam: Dry, Normal Color, Warm Assessment and Plan - Assessment and Plan (Free Text) Assessment: A 78 year old female who came in to the ER due to altered mental status, generalized weakness and diarrhea. History of coronary artery disease, post CABG in 2006, ovarian cancer in 2009, with hysterectomy, fibroid in 2011, hypertension, COPD, GERD,history of malleolar fracture and was hospitalized then sent to rehab. EKG shows sinus bradycardia with PAC's, ST-T changes consistent with ischemia. Denies chest pain. Rule out acute myocardial infarction. No previous cardiac work up done at [facility] [place]. Will check office chart. Echo done and sh owed LVEF 60-65%, trace MR/TR/AR RVSP 17 mmHg, . Had an unwitnessed fall over the weekend. Negative for brain hemorrhage or fracture. Fall precaution. Cardiac status stable. GI on consult and work up in progress. Neuro on consult. Continue IV hydration. Physical therapy. Plan: Denies chest pain, no distress Blood pressure controlled Heart rate stable Cardiac status stable On ASA 81 mg daily, Cozaar 100 mg daily,Lopressor 50 mg daily Continue current management Continue current treatment GI on consult, GI work up in progress Continue IV hydration. Physical therapy Will follow up Plan and treatment discussed with Dr. An
[2019-02-23 07:03] LABS: MEAN CELL VOLUME 91.6 fl (80.0-105.0); MEAN CORPUSCULAR HEMOGLOBIN 29.3 pg (25.0-35.0); MEAN PLATELET VOLUME 10.6 fl (7.0-11.0); RBC 3.68 10^6/uL (3.5-6.1); RED CELL DISTRIBUTION WIDTH 14.8 % (11.5-14.5); WHITE BLOOD COUNT 5.4 10^3/uL (4.5-11.0)
[2019-02-23 07:06] LABS: HEMOGLOBIN 10.8 g/dL (12.0-16.0)
[2019-02-23] MEDS: Arformoterol 15 mcg/2 ml Inh Sol IH SCH ×2 (07:29→19:25)
[2019-02-23] MEDS: Budesonide 0.5 mg/2 ml Inhal Susp UD IH SCH ×2 (07:30→19:25)
[2019-02-23 07:41] LABS: ALB/GLOB RATIO 1.1 (1.1-1.8); ALBUMIN 3.1 g/dL (3.0-4.8); ALT/SGPT 12 U/L (7-56); AST/SGOT 25 U/L (14-36); BLOOD UREA NITROGEN 23 mg/dL (7-21); CALCIUM 8.3 mg/dL (8.4-10.5); GFR NON-AFRICAN AMERICAN > 60
[2019-02-23] MEDS: Insulin Reg-LOW-Coverage SC SCH ×4 (07:54→22:02)
[2019-02-23] MEDS ORDERED: Magnesium Sulfate 1 gm in D5W 1 GM/100 ML BAG IVPB ONE (08:06)
[2019-02-23] MEDS ORDERED: Magnesium Sulfate 2 gm/50 ml 2 GM/50 ML BAG IVPB ONE (08:07)
[2019-02-23] MEDS: Lidocaine 5% Patch TD SCH (09:23)
[2019-02-23] MEDS: Tiotropium 18 mcg Cap For Inhalation IH SCH ×2 (09:24→10:01)
[2019-02-23] MEDS: Non Formulary Medication (Ezetimibe/Simvastatin [Vytorin 10-40 Mg Tablet] 1 TAB) PO SCH (09:24)
[2019-02-23] MEDS: Haloperidol Lactate 2 mg/ml Liquid PO SCH ×2 (10:00→22:11)
--- NOTE | 2019-02-23 12:29 | CP.PCM.PCO ---
Physician Communication Note - Physician Communication Note Physician Communication Note: rec satinder
--- NOTE | 2019-02-23 19:28 | CON ---
DATE: 02/23/2019 HISTORY OF PRESENT ILLNESS: The patient is a 78-year-old female with no prior psychiatric history except for this provider's consultation on 02/21/2019; who is being treated on the medical floor for altered mental status as well as GI complaints. Psychiatry was consulted due to her altered mental status, which is very much likely due to delirium due to acuity of symptoms. Family has also reported some concerns about the patient's behavioral issues and paranoia and has concerns about having her return home as per discussion of [facility] yesterday. I met with the patient at bedside again today and her focus remains a little inconsistent. Her memory is also inconsistent; however, she is able to retrieve memories with more assuredness. She denies any depression or thoughts to harm herself. She denies any hallucinations. I agree, this patient is paranoid. She states she is unhappy, although she denies depression. She reports that she is unhappy because of conflict with her daughter and she relates this to her being jealous of her and would leave her alone and tries to take her belongings and it is unclear how much of this is true. She does not believe that her daughter or anyone else is trying to harm her, she just feels that there is some emotional discontent revolving around jealousy of each other. The patient has been in somewhat improved behavioral control in the last 24 hours and she denies any issues with the medications that I have prescribed for her so far. She is thankful for my visit. She does not escalate, she merely communicates how there is clearly some irritability whenever she discusses her family members. Her insight and judgment concerning her relationship with her family members are considered to be impaired, but in other capacities are considered to be fair. She has been taking her medications on the unit. Labs and vital signs were reviewed. RELEVANT PSYCHIATRIC MEDICATIONS: Include; Xanax 0.25 mg b.i.d. and 0.5 mg at bedtime, as well as Haldol 0.25 mg at a.m. and at bedtime. IMPRESSION: Likely delirium; rule out background of dementia with psychotic features; rule out depression with pseudodementia. Although the patient denies depression, she seems very unhappy and a little escobar. Adjustment disorder with anxiety associated with hospitalization. RECOMMENDATIONS: I will continue with Haldol 0.25 mg a.m. and at bedtime. This medication was just started yesterday and the patient only received one dose. Continue with Xanax; however, we will space it out to 0.25 mg b.i.d. and 0.5 mg at bedtime. Psychiatry will continue to visit with the patient every other day and monitor her progress. The patient does not qualify for psychiatric involuntarily treatment and the patient is not interested in signing herself into the voluntary unit. Aleksey Bolden MD
--- NOTE | 2019-02-23 23:08 | PN ---
DATE: 02/23/2019 SUBJECTIVE: The patient was seen this Friday in room 563, bed 1. She remains oddly confused. Conversation with me is not quite clear and smooth. She certainly recognizes me as , I am here to see her, knows that she normally sees Dr. Gillette, but then went off on tangents, worrying that he is listening to her daughter, that her daughter has less than [place]orn[place] intent as to her well-being and so forth. Chart was reviewed. Case was discussed with Dr. Nain Guillory earlier today. I see that Psychiatry and Neurology are involved in her care. We will need to talk with them and family on discharge planning and our next step in her care. We will need to discuss with Dr. Nain Guillory. Mehran Guillory MD
[2019-02-24] MEDS: Pantoprazole 40 mg EC Tab PO SCH (06:30)
--- NOTE | 2019-02-24 06:42 | CP.PCM.PN ---
Subjective - Date & Time of Evaluation Date of Evaluation: 02/24/19 Time of Evaluation: 06:22 - Subjective Subjective: No distress, lying in bed Reason for consultation and follow up:Cardiac follow up, history coronary artery disease, post CABG, admitted for altered mental status,generalized weakness and diarrhea. Seen and examined by me and Dr. An Objective - Vital Signs/Intake and Output Vital Signs (last 24 hours): Temp Pulse Resp BP Pulse Ox 98.5 F 81 18 135/68 95 02/23/19 22:32 02/23/19 22:32 02/23/19 22:32 02/23/19 22:32 02/23/19 22:32 Intake and Output: 02/23/19 02/24/19 18:59 06:59 Intake Total 360 660 Balance 360 660 - Medications Medications: Current Medications Acetaminophen (Tylenol 325mg Tab) 650 mg PO Q4H PRN PRN Reason: Pain, Mild (1-3) Last Admin: 02/20/19 05:31 Dose: 650 mg Albuterol Sulfate (Albuterol 0.5% Inhal Chiquita (2.5 Mg/0.5 Ml) Ud) 2.5 mg IH [id number] PRN PRN Reason: Shortness of Breath Alprazolam (Xanax) 0.5 mg PO HS [facility]; Protocol Last Admin: 02/23/19 22:00 Dose: 0.5 mg Alprazolam (Xanax) 0.25 mg PO BID [facility]; Protocol Stop: 03/02/19 10:01 Last Admin: 02/23/19 17:11 Dose: Not Given Arformoterol Tartrate (Brovana) 15 mcg IH [id number] [facility] Last Admin: 02/23/19 19:25 Dose: Not Given Aspirin (Aspirin Chewable) 81 mg PO DAILY [facility] Last Admin: 02/23/19 09:59 Dose: 81 mg Benzocaine/Menthol (Cepacol Sore Throat) 1 chino MT Q2H PRN PRN Reason: Sore Throat Budesonide (Pulmicort Respules) 0.5 mg IH [id number] [facility] Last Admin: 02/23/19 19:25 Dose: Not Given Dextrose (Dextrose 50% Inj) 0 ml IV STAT PRN; Protocol PRN Reason: Hypoglycemia Protocol Folic Acid (Folic Acid) 1 mg PO DAILY [facility] Last Admin: 02/23/19 10:00 Dose: 1 mg Glimepiride (Amaryl) 4 mg PO BID [facility] Last Admin: 02/22/19 17:41 Dose: 4 mg Haloperidol Lactate (Haldol) 0.25 mg PO AMHS [facility]; Protocol Last Admin: 02/23/19 22:11 Dose: 0.25 mg Hydralazine HCl (Apresoline) 10 mg IVP Q6 PRN PRN Reason: SBP above 160 mmHg Dextrose/Sodium Chloride (Dextrose 5%/0.9% Ns 1000 Ml) 1,000 mls @ 60 mls/hr IV .[id number] [facility] Last Admin: 02/22/19 23:48 Dose: 60 mls/hr Dextrose (Dextrose 5% In Water 1000 Ml) 1,000 mls @ 0 mls/hr IV .Q0M PRN; Protocol PRN Reason: Hypoglycemia Protocol Insulin Human Regular (Humulin R Low) 0 units SC ACHS [facility]; Protocol Last Admin: 02/23/19 22:02 Dose: Not Given Lidocaine (Lidoderm) 1 ea TD DAILY [facility] Last Admin: 02/23/19 09:23 Dose: 1 ea Lorazepam (Ativan) 1 mg PO BID PRN; Protocol PRN Reason: Agitation Last Admin: 02/23/19 19:50 Dose: 1 mg Losartan Potassium (Cozaar) 50 mg PO DAILY [facility] Last Admin: 02/23/19 10:00 Dose: 50 mg Metformin HCl (Glucophage) 500 mg PO BID [facility] Last Admin: 02/22/19 17:41 Dose: 500 mg Metoprolol Tartrate (Lopressor) 50 mg PO DAILY [facility] Last Admin: 02/23/19 10:00 Dose: Not Given Non-Formulary Medication (Ezetimibe/Simvastatin [Vytorin 10-40 Mg Tablet]) 1 tab PO DAILY [facility] Last Admin: 02/23/19 09:24 Dose: Not Given Ondansetron HCl (Zofran Inj) 4 mg IVP Q6H PRN PRN Reason: Nausea/Vomiting Last Admin: 02/17/19 19:38 Dose: 4 mg Pantoprazole Sodium (Protonix Ec Tab) 40 mg PO ACB [facility] Last Admin: 02/24/19 06:30 Dose: 40 mg Tiotropium [place] (Spiriva) 18 mcg IH DAILY [facility] Last Admin: 02/23/19 10:01 Dose: Not Given - Labs Labs: 02/23/19 06:30 02/23/19 06:30 PT 12.4 SECONDS (9.4-12.5) 02/16/19 21:15 INR 1.12 02/16/19 21:15 APTT 23.0 Seconds (26.9-38.3) L 02/16/19 21:15 - Constitutional Appears: Non-toxic, No Acute Distress - Head Exam Head Exam: NORMAL INSPECTION, NORMOCEPHALIC - Eye Exam Eye Exam: Normal appearance Pupil Exam: NORMAL ACCOMODATION - ENT Exam ENT Exam: Mucous Membranes Moist, Normal Exam - Respiratory Exam Respiratory Exam: Decreased Breath Sounds, Clear to Ausculation Bilateral, NORMAL BREATHING PATTERN - Cardiovascular Exam Cardiovascular Exam: +S1, +S2 - GI/Abdominal Exam GI & Abdominal Exam: Soft, Normal Bowel Sounds - Extremities Exam Extremities Exam: Full ROM Additional comments: right foot boot intact - Neurological Exam Neurological Exam: Alert, Awake - Psychiatric Exam Psychiatric exam: Normal Affect, Normal Mood - Skin Skin Exam: Dry, Normal Color, Warm Assessment and Plan - Assessment and Plan (Free Text) Assessment: A 78 year old female who came in to the ER due to altered mental status, generalized weakness and diarrhea. History of coronary artery disease, post CABG in 2006, ovarian cancer in 2009, with hysterectomy, fibroid in 2011, hypertension, COPD, GERD,history of malleolar fracture and was hospitalized then sent to rehab. EKG shows sinus bradycardia with PAC's, ST-T changes consistent with ischemia. Denies chest pain. Rule out acute myocardial infarction. [place] cardiac [place] [facility] [place] done and showed LVEF 60-65%, trace MR/TR/AR RVSP 17 mmHg, . Had an unwitnessed fall over the weekend. Negative for brain hemorrhage or fracture. Fall precaution. Cardiac status stable. GI on consult . Neuro on consult. Physical therapy.Followed up by Psychiatry. Cardiac status stable, Out patient stress test. Plan: Cardiac status stable Denies chest pain, no distress Blood pressure controlled Heart rate stable On ASA 81 mg daily, Cozaar 100 mg daily,Lopressor 50 mg daily Continue current management Continue current treatment GI on consult Followed up by Neuro and Psychiatry Continue IV hydration. Physical therapy Discharge planning Out patient Stress test Will follow up Plan and treatment discussed with Dr. An
[2019-02-24] MEDS: Arformoterol 15 mcg/2 ml Inh Sol IH SCH ×2 (07:48→19:45)
[2019-02-24] MEDS: Budesonide 0.5 mg/2 ml Inhal Susp UD IH SCH ×2 (07:49→19:45)
[2019-02-24 08:09] LABS: HEMOGLOBIN 10.7 g/dL (12.0-16.0); MEAN CELL VOLUME 91.5 fl (80.0-105.0); MEAN CORPUSCULAR HEMOGLOBIN 28.5 pg (25.0-35.0); MEAN CORPUSCULAR HGB CONC 31.1 g/dl (31.0-37.0); MEAN PLATELET VOLUME 11.4 fl (7.0-11.0); RBC 3.76 10^6/uL (3.5-6.1); RED CELL DISTRIBUTION WIDTH 14.7 % (11.5-14.5); WHITE BLOOD COUNT 3.5 10^3/uL (4.5-11.0)
[2019-02-24] MEDS: Insulin Reg-LOW-Coverage SC SCH ×4 (08:18→22:30)
[2019-02-24 08:27] LABS: BLOOD UREA NITROGEN 17 mg/dL (7-21); CALCIUM 8.6 mg/dL (8.4-10.5); GFR NON-AFRICAN AMERICAN > 60
[2019-02-24] MEDS: Tiotropium 18 mcg Cap For Inhalation IH SCH (09:56)
[2019-02-24] MEDS: Lidocaine 5% Patch TD SCH ×2 (09:57→10:06)
[2019-02-24] MEDS: Non Formulary Medication (Ezetimibe/Simvastatin [Vytorin 10-40 Mg Tablet] 1 TAB) PO SCH (09:57)
[2019-02-24] MEDS: Haloperidol Lactate 2 mg/ml Liquid PO SCH ×2 (09:58→22:40)
--- NOTE | 2019-02-24 10:44 | CP.PCM.PCO ---
Additional Comments - Additional Comments Additional Comments: Pt seen and examined at bedside. In no acute distress. Pt was started on psych meds. Plan discussed w/ Dr. Roxana Guillory. Will continue to follow.
[2019-02-24 21:44] VITALS: O2SAT 95
[2019-02-25] MEDS: Budesonide 0.5 mg/2 ml Inhal Susp UD IH SCH (07:17)
[2019-02-25] MEDS: Arformoterol 15 mcg/2 ml Inh Sol IH SCH (07:17)
[2019-02-25 07:31] VITALS: PULSE 62; TEMP 98
--- NOTE | 2019-02-25 07:48 | CP.PCM.PN ---
Subjective - Date & Time of Evaluation Date of Evaluation: 02/25/19 Time of Evaluation: 06:40 - Subjective Subjective: Feels okay, Awake, no distress, lying in bed Reason for consultation and follow up:Cardiac follow up, history coronary artery disease, post CABG, admitted for altered mental status,generalized weakness and diarrhea. Seen and examined by me and Dr. An Objective - Vital Signs/Intake and Output Vital Signs (last 24 hours): Temp Pulse Resp BP Pulse Ox 98 F 62 18 145/69 95 02/25/19 06:00 02/25/19 06:00 02/25/19 06:00 02/25/19 06:00 02/25/19 06:00 Intake and Output: 02/25/19 02/25/19 06:59 18:59 Intake Total 540 Balance 540 - Medications Medications: Current Medications Acetaminophen (Tylenol 325mg Tab) 650 mg PO Q4H PRN PRN Reason: Pain, Mild (1-3) Last Admin: 02/20/19 05:31 Dose: 650 mg Albuterol Sulfate (Albuterol 0.5% Inhal [place]ita (2.5 Mg/0.5 Ml) Ud) 2.5 mg IH [id number] PRN PRN Reason: Shortness of Breath Alprazolam (Xanax) 0.5 mg PO HS ISATU; Protocol Last Admin: 02/24/19 22:46 Dose: 0.5 mg Alprazolam (Xanax) 0.25 mg PO BID ISATU; Protocol Stop: 03/02/19 10:01 Last Admin: 02/24/19 17:25 Dose: 0.25 mg Arformoterol Tartrate (Brovana) 15 mcg IH [id number] [facility] Last Admin: 02/25/19 07:17 Dose: 15 mcg Aspirin (Aspirin Chewable) 81 mg PO DAILY [facility] Last Admin: 02/24/19 09:56 Dose: 81 mg Benzocaine/Menthol (Cepacol Sore Throat) 1 chino MT Q2H PRN PRN Reason: Sore Throat Budesonide (Pulmicort Respules) 0.5 mg IH [id number] [facility] Last Admin: 02/25/19 07:17 Dose: 0.5 mg Dextrose (Dextrose 50% Inj) 0 ml IV STAT PRN; Protocol PRN Reason: Hypoglycemia Protocol Folic Acid (Folic Acid) 1 mg PO DAILY [facility] Last Admin: 02/24/19 09:57 Dose: 1 mg Glimepiride (Amaryl) 4 mg PO BID [facility] Last Admin: 02/22/19 17:41 Dose: 4 mg Haloperidol Lactate (Haldol) 0.25 mg PO [facility]; Protocol Last Admin: 02/24/19 22:40 Dose: 0.25 mg Hydralazine HCl (Apresoline) 10 mg IVP Q6 PRN PRN Reason: SBP above 160 mmHg Dextrose (Dextrose 5% In Water 1000 Ml) 1,000 mls @ 0 mls/hr IV .Q0M PRN; Protocol PRN Reason: Hypoglycemia Protocol Insulin Human Regular (Humulin R Low) 0 units SC [facility]; Protocol Last Admin: 02/24/19 22:30 Dose: Not Given Lidocaine (Lidoderm) 1 ea TD DAILY [facility] Last Admin: 02/24/19 10:06 Dose: Not Given Lorazepam (Ativan) 1 mg PO BID PRN; Protocol PRN Reason: Agitation Last Admin: 02/23/19 19:50 Dose: 1 mg Losartan Potassium (Cozaar) 50 mg PO DAILY [facility] Last Admin: 02/24/19 09:57 Dose: 50 mg Metformin HCl (Glucophage) 500 mg PO BID [facility] Last Admin: 02/22/19 17:41 Dose: 500 mg Metoprolol Tartrate (Lopressor) 50 mg PO DAILY [facility] Last Admin: 02/24/19 09:57 Dose: 50 mg Non-Formulary Medication (Ezetimibe/Simvastatin [Vytorin 10-40 Mg Tablet]) 1 tab PO DAILY [facility] Last Admin: 02/24/19 09:57 Dose: Not Given Ondansetron HCl (Zofran Inj) 4 mg IVP Q6H PRN PRN Reason: Nausea/Vomiting Last Admin: 02/17/19 19:38 Dose: 4 mg Pantoprazole Sodium (Protonix Ec Tab) 40 mg PO ACB [facility] Last Admin: 02/24/19 06:30 Dose: 40 mg Tiotropium [place] (Spiriva) 18 mcg IH DAILY [facility] Last Admin: 02/24/19 09:56 Dose: Not Given - Labs Labs: 02/24/19 07:30 02/24/19 07:30 PT 12.4 SECONDS (9.4-12.5) 02/16/19 21:15 INR 1.12 02/16/19 21:15 APTT 23.0 Seconds (26.9-38.3) L 02/16/19 21:15 - Constitutional Appears: Non-toxic, No Acute Distress - Head Exam Head Exam: NORMAL INSPECTION, NORMOCEPHALIC - Eye Exam Eye Exam: Normal appearance Pupil Exam: NORMAL ACCOMODATION - ENT Exam ENT Exam: Mucous Membranes Moist, Normal Exam - Respiratory Exam Respiratory Exam: Clear to Ausculation Bilateral, NORMAL BREATHING PATTERN - Cardiovascular Exam Cardiovascular Exam: +S1, +S2 - GI/Abdominal Exam GI & Abdominal Exam: Soft, Normal Bowel Sounds - Extremities Exam Extremities Exam: Full ROM Additional comments: right foot boot intact - Neurological Exam Neurological Exam: Alert, Awake, Oriented x3 - Psychiatric Exam Psychiatric exam: Normal Affect, Normal Mood - Skin Skin Exam: Dry, Normal Color, Warm Assessment and Plan - Assessment and Plan (Free Text) Assessment: A 78 year old female who came in to the ER due to altered mental status, generalized weakness and diarrhea. History of coronary artery disease, post CABG in 2006, ovarian cancer in 2009, with hysterectomy, fibroid in 2011, hypertension, COPD, GERD,history of malleolar fracture and was hospitalized then sent to rehab. EKG shows sinus bradycardia with PAC's, ST-T changes consistent with ischemia. Denies chest pain. Rule out acute myocardial infarction. No previous cardiac work up done at [facility] [place] [place]. Echo done and showed LVEF 60-65%, trace MR/TR/AR RVSP 17 mmHg, . Had an unwitnessed fall over the weekend. Negative for brain hemorrhage or fracture. Fall precaution. Cardiac status stable. GI on consult . Neuro on consult. Physical therapy.Followed up by Psychiatry. Cardiac status stable, Recommended and scheduled out patient stress test for risk strat ification however patient is refusing saying "there is nothing wrong with my heart". Discharge planning. Will sign off. Will follow up as needed. Plan: Refused Out patient Stress test Denies chest pain, no distress Cardiac status stable Blood pressure controlled Heart rate stable On ASA 81 mg daily, Cozaar 100 mg daily,Lopressor 50 mg daily Continue current management Continue current treatment GI on consult Followed up by Neuro and Psychiatry Physical therapy Discharge planning Will sign off Will follow up as needed Plan and treatment discussed with Dr. An
[2019-02-25] MEDS: Insulin Reg-LOW-Coverage SC SCH ×3 (07:56→17:04)
[2019-02-25] MEDS: Pantoprazole 40 mg EC Tab PO SCH (08:26)
[2019-02-25] MEDS: Non Formulary Medication (Ezetimibe/Simvastatin [Vytorin 10-40 Mg Tablet] 1 TAB) PO SCH (09:55)
[2019-02-25] MEDS: Tiotropium 18 mcg Cap For Inhalation IH SCH (09:55)
[2019-02-25] MEDS: Lidocaine 5% Patch TD SCH (09:56)
[2019-02-25 09:57] VITALS: BP 146/69
[2019-02-25] MEDS: Haloperidol Lactate 2 mg/ml Liquid PO SCH (10:37)
--- NOTE | 2019-02-25 21:05 | CARD ---
APPROVED REPORT Date of service: 02/25/2019 EKG Measurement Heart [id number] <Conclusion> Marked sinus bradycardia ST & Marked T wave abnormality, consider anterolateral ischemia Abnormal ECG
--- NOTE | 2019-02-25 21:41 | PN ---
DATE: 02/25/2019 SUBJECTIVE: The patient is a 78-year-old female with no known previous psychiatric history. The patient was admitted on the medical site on 01/16/2019 for evaluation of generalized weakness. Psych consult was called for evaluation of disorganized thoughts and confusion. The patient was seen by Dr. Bolden on 02/21/2019 as well as 02/23/2019. It was recommended for this brief writer to follow up on this patient today. The patient was seen and examined. Based on presentation at the time of admission, Dr. Bolden felt most likely the patient is psychotic due to delirium. The patient was started on haloperidol twice a day 0.25 mg. Based on previous history, the patient has never been evaluated by psychiatrist in the past and never been admitted to the psychiatric inpatient unit. The patient was seen today. The patient presented to be alert. The patient knows that she is in the hospital. The patient is aware of the month, date, and the year. The patient presented to be paranoid towards her family that the patient's daughter is trying to get rid of her. The patient seems to be unsatisfied with the services. The patient reported that nurses are mistreating her and doing something suspicious. When this brief writer asked for examples, the patient said that it is noisy here and did not give any specific examples, but went tangent about her family, about her marriage, and about her daughter whom she is not getting along "since the time she was born." Very hard to interview because of circumstantiality and tangentiality of the thought process. Vital signs reviewed, seems to be stable. MEDICATIONS Reviewed. This brief writer would suggest to change her haloperidol to Risperdal because this medication usually better tolerated. LABORATORY DATA: Labs reviewed. Chemistry reviewed. Urinalysis reviewed. This brief writer also reviewed case management note. The patient lives with her family house on the ground floor, but the patient's daughter, Eli, lives on the second floor. The patient does not have any power of privacy attorney or medical proxy. The patient still does not want to sign herself into the psychiatric inpatient unit and does not meet the criteria for involuntary commitment screening process. MENTAL STATUS EXAM: The patient appears to be alert, oriented, and intermittent eye contact. Mood described as annoyed. Affect is constricted. Thought process circumstantial and tangential. Thought content, the patient presented to be disorganized, paranoid; and psychotic, but the patient is not aggressive. Insight and judgment seems to be limited. Impulses are well controlled. IMPRESSION: Psychosis, not otherwise specified, rule out delirium due to general medical condition. PLAN: This brief writer discontinued Haldol, started Risperdal 0.5 mg twice a day. Would suggest initiate the process of power of privacy attorney when the patient will be improving with her mental status. The patient expressed no interest to be admitted to the psychiatric inpatient unit and does not meet the criteria for psych admission. Family should be involved. Should you have any questions, give me a call back. We will follow up on this patient every other day. Next followup is Friday. Should you have any questions, give me a call back Annemarie Finn MD [facility]
--- NOTE | 2019-02-26 10:25 | CP.PCM.PCO ---
Physician Communication Note - Physician Communication Note Physician Communication Note: pt was d/c
--- NOTE | 2019-02-27 03:34 | DS ---
HISTORY OF PRESENT ILLNESS: This is a 78-year-old woman, who came to emergency room after the patient's daughter called the ambulance because of odd bizarre behavior at home. The patient admitted in the acute care facility. Medical, metabolic etiologies, altered mental status were ruled out. She was seen by Neurology as well as Psychiatry with IV hydration, and within the day or two, the patient's mental status cleared. She was almost ready for discharge to home, but when seen by her primary , Dr. Nain Guillory who knows her well, just did not seem right. That evening, she had another acute episode of altered mental status and bizarre behavior. She was worked up again which was unremarkable. There was felt to be a strong emotional, psychological, and psychiatric component to her symptoms. She was continued on medications including Xanax and haloperidol. Discharge plans were reviewed with the patient and the family. The patient very much wanted to go home. She did not want to go to psychiatry floor for further medication adjustment. She is not a candidate for involuntary commitment, and she was felt to be not a threat to herself or others. On , the date of discharge 02/25/2019, Dr. Nain Guillory spoke with the patient's daughter, who was ready for her to come home. She lives in a three family house with her family, and so the patient will be discharged to home. Medications were sent to her pharmacy for Xanax 0.25 mg b.i.d. and 0.5 mg at bedtime, as well as haloperidol 0.5 mg every morning and at bedtime. In the last day or two of the patient's hospital stay, the haloperidol had been replaced by Risperdal, but at home, we will continue the haloperidol for now since it is such a very low dose. FINAL DISCHARGE DIAGNOSES: 1. Altered mental status. 2. Dehydration. 3. Hypokalemia. 4. Elevated random glucose on admission. 5. Chronic obstructive pulmonary disease. 6. Hypertension. 7. Diabetes. 8. Psychosis, not otherwise specified; rule out delirium due to general medical condition. Mehran Guillory MD [facility] # [id number] [facility]
== END 2019-02-25 20:42 | disposition home health service (06) | DRG 392 ==
LOC: ED 18:38 → ERH 22:54 → 5RNO 02-17 00:40
PROVIDERS: ADMIT Internal Medicine; ATTEND Internal Medicine
DX: A08.4 Viral intestinal infection, unspecified (principal); F13.239 Sedative, hypnotic or anxiolytic dependence with withdrawal, unspecified; E87.2 Acidosis; E86.0 Dehydration; I25.10 Atherosclerotic heart disease of native coronary artery without angina pectoris; I11.0 Hypertensive heart disease with heart failure; I50.9 Heart failure, unspecified; E11.9 Type 2 diabetes mellitus without complications; M17.0 Bilateral primary osteoarthritis of knee; E87.6 Hypokalemia; K21.9 Gastro-esophageal reflux disease without esophagitis; J43.9 Emphysema, unspecified; F43.22 Adjustment disorder with anxiety; I08.3 Combined rheumatic disorders of mitral, aortic and tricuspid valves; R41.82 Altered mental status, unspecified; R63.0 Anorexia; R53.1 Weakness; Z79.82 Long term (current) use of aspirin; Z79.84 Long term (current) use of oral hypoglycemic drugs; Z85.43 Personal history of malignant neoplasm of ovary; Z87.891 Personal history of nicotine dependence